=== PATIENT | female | born 1970 | race Two or more races ===

== ENCOUNTER 2019-02-08 14:09 | Inpatient (IN) | payer OTHER ==
[~2019-02-08] VITALS: Ht 152.4 cm; Wt 64.0 kg
[2019-02-08 14:25] VITALS: BP 113/68
--- NOTE | 2019-02-08 14:25 | NUR ---
ED Nurse Note: PATIENT PRESENTS TO DUE TO ABDOMINAL PAIN, CHILLS, N/V AND LOOSE STOOL X 2 DAYS; PATIENT STATES 'PAIN WAS ALL OVER THE ABDOMEN'; PATIENT HAS REDNESS WITH SCALY SKIN ON UPPER BACK, CHEST. PER PATIENT, SHE WAS SEEN BY MD DUE TO ALLERGIC REACTION 2 DAYS AGO. PATIENT HAS SCALY SKIN OVER RIGHT HAND. PATIENT WAS UNABLE TO TOLERATE ORAL FLUIDS DUE TO FEELING NAUSEOUS AND VOMITIED AFTER DRINKING FLUIDS OR EATING FOOD. PATIENT AMBULATES WITH CANE AT HOME.
[2019-02-08] MEDS ORDERED: Isovue-300 100ml vial INJ PRN (14:30)
[2019-02-08 15:01] LABS: BASOPHILS % (AUTO) 1.7 % (0.0-2.0); EOSINOPHILS % (AUTO) 0.5 % (0.0-3.0); HEMATOCRIT 50.5 % (37.0-47.0); HEMOGLOBIN 16.7 G/DL (12.0-16.0); LYMPHOCYTES % (AUTO) 12.6 % (20.0-45.0); MEAN CORPUSCULAR VOLUME 90 FL (80-99); MONOCYTES % (AUTO) 14.1 % (1.0-10.0); NEUTROPHILS % (AUTO) 71.1 % (45.0-75.0); PLATELET COUNT 287 K/UL (150-450); RED BLOOD COUNT 5.59 M/UL (4.20-5.40); RED CELL DISTRIBUTION WIDTH 10.6 % (11.6-14.8); WHITE BLOOD COUNT 3.9 K/UL (4.8-10.8)
[2019-02-08 15:05] LABS: APPEARANCE,URINE CLEAR; BILIRUBIN, URINE NEGATIVE (NEGATIVE); GLUCOSE, URINE (UA) NEGATIVE (NEGATIVE); KETONES,URINE 3+ (NEGATIVE); LEUKOCYTE ESTERASE ,URINE 1+ (NEGATIVE); NITRITE,URINE NEGATIVE (NEGATIVE); PH,URINE 7 (4.5-8.0); PROTEIN,URINE 2+ (NEGATIVE); UROBILINOGEN,URINE 8 MG/DL (0.0-1.0)
[2019-02-08 15:08] LABS: COLOR,URINE YELLOW
[2019-02-08 15:16] LABS: ANION GAP 11 mmol/L (5-15); BLOOD UREA NITROGEN 17 mg/dL (7-18); CARBON DIOXIDE 26 MMOL/L (21-32); CHLORIDE 104 MMOL/L (98-107); CREATININE 0.6 MG/DL (0.55-1.30); POTASSIUM 3.8 MMOL/L (3.5-5.1); SODIUM 141 MMOL/L (136-145)
[2019-02-08] MEDS ORDERED: NKM (15:24)
[2019-02-08 15:30] LABS: ALANINE AMINOTRANSFERASE 92 U/L (12-78); ALBUMIN 3.4 G/DL (3.4-5.0); ALBUMIN/GLOBULIN RATIO 0.6 (1.0-2.7); ALKALINE PHOSPHATASE 134 U/L (46-116); ASPARTATE AMINO TRANSFERASE 93 U/L (15-37); BILIRUBIN,TOTAL 0.8 MG/DL (0.2-1.0); CKMB 0.8 NG/ML (0.0-3.6); CREATINE KINASE 114 U/L (26-308)
--- NOTE | 2019-02-08 15:47 | Diagnostic Imaging Report ---
Indication: Shortness of breath Technique: One view of the chest Comparison: none Findings: Body habitus somewhat somewhat limits evaluation. Hazy opacity of the left lung base is probably due to overlying soft tissues. No definite acute infiltrates, effusions, or congestion. Heart size is normal Impression: No definite acute process
--- NOTE | 2019-02-08 15:51 | NUR ---
ED Nurse Note: Patient taken down for CT scan. RN read the consent form and patient verbalized understanding of it and signed the consent.
--- NOTE | 2019-02-08 15:54 | Emergency Room Report ---
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 Denies any chest pain or shortness of breath abdominal pains 5 out of 10 sharp denies any change of position denies any blood in the stool Allergies: Coded Allergies: No Known Allergies (Unverified , 02/08/19) Patient History Past Medical History: see triage record Pertinent Family History: none Last Menstrual Period: 01/03/2019 Reviewed Nursing Documentation: PMH: Agreed; PSxH: Agreed Nursing Documentation-PMH Past Medical History: No History, Except For Review of Systems All Other Systems: negative except mentioned in HPI Physical Exam Vital Signs Date Time Temp Pulse Resp B/P (MAP) Pulse Ox O2 Delivery O2 Flow Rate FiO2 02/08/19 14:15 98.1 85 18 105/80 (88) 98 Room Air Sp02 EP Interpretation: reviewed, normal General Appearance: well appearing, no apparent distress Head: normocephalic, atraumatic ENT: normal pharynx Neck: supple Respiratory: lungs clear, no retraction, no accessory muscle use Cardiovascular #1: regular rate, rhythm Gastrointestinal: other - Patient is uncomfortable diffusely however no obvious rebound soft abdomen Musculoskeletal: other - Patient debilitated with left hand flexure bilateral feet and extension Neurologic: alert, oriented x3 Skin: other - Rash involving the upper chest bilaterally patient reports that this is reaction to mustard Lymphatic: no adenopathy Medical Decision Making Diagnostic Impression: Primary Impression: Abdominal pain Additional Impression: Elevated troponin ER Course With the history exam and presentation, multiple differentials considered, including but not limited to appendicitis, gastritis, cholecystitis, diverticulitis During the patient's work-up and examination cardiac enzyme has returned mildly elevated patient CT imaging of the abdomen also shows incidental finding of bilateral lower lobe atelectasis Further question regarding cardiac and cardiopulmonary pathology was also entertained at this time, patient received further intervention in the ER And requires inpatient care Labs Test 02/08/19 14:46 02/08/19 23:00 02/09/19 05:52 02/10/19 09:57 White Blood Count 3.9 K/UL (4.8-10.8) 3.3 K/UL (4.8-10.8) 3.7 K/UL (4.8-10.8) Red Blood Count 5.59 M/UL (4.20-5.40) 4.78 M/UL (4.20-5.40) 4.86 M/UL (4.20-5.40) Hemoglobin 16.7 G/DL (12.0-16.0) 14.6 G/DL (12.0-16.0) 14.4 G/DL (12.0-16.0) Hematocrit 50.5 % (37.0-47.0) 43.2 % (37.0-47.0) 43.6 % (37.0-47.0) Mean Corpuscular Volume 90 FL (80-99) 90 FL (80-99) 90 FL (80-99) Mean Corpuscular Hemoglobin 29.9 PG (27.0-31.0) 30.6 PG (27.0-31.0) 29.7 PG (27.0-31.0) Mean Corpuscular Hemoglobin Concent 33.0 G/DL (32.0-36.0) 33.8 G/DL (32.0-36.0) 33.1 G/DL (32.0-36.0) Red Cell Distribution Width 10.6 % (11.6-14.8) 10.5 % (11.6-14.8) 10.5 % (11.6-14.8) Platelet Count 287 K/UL (150-450) 250 K/UL (150-450) 257 K/UL (150-450) Mean Platelet Volume 7.0 FL (6.5-10.1) 6.4 FL (6.5-10.1) 6.5 FL (6.5-10.1) Neutrophils (%) (Auto) 71.1 % (45.0-75.0) % (45.0-75.0) % (45.0-75.0) Lymphocytes (%) (Auto) 12.6 % (20.0-45.0) % (20.0-45.0) % (20.0-45.0) Monocytes (%) (Auto) 14.1 % (1.0-10.0) % (1.0-10.0) % (1.0-10.0) Eosinophils (%) (Auto) 0.5 % (0.0-3.0) % (0.0-3.0) % (0.0-3.0) Basophils (%) (Auto) 1.7 % (0.0-2.0) % (0.0-2.0) % (0.0-2.0) Urine Color Yellow Urine Appearance Clear Urine pH 7 (4.5-8.0) Urine Specific [place] 1.015 (1.005-1.035) Urine Protein 2+ (NEGATIVE) Urine Glucose (UA) Negative (NEGATIVE) Urine Ketones 3+ (NEGATIVE) Urine Blood 1+ (NEGATIVE) Urine Nitrite Negative (NEGATIVE) Urine Bilirubin Negative (NEGATIVE) Urine Urobilinogen 8 MG/DL (0.0-1.0) Urine Leukocyte Esterase 1+ (NEGATIVE) Urine RBC 0-2 /HPF (0 - 2) Urine WBC 0-2 /HPF (0 - 2) Urine Squamous Epithelial Cells None /LPF (NONE/OCC) Urine Bacteria None /HPF (NONE) Urine HCG, Qualitative Negative (NEGATIVE) Sodium Level 141 MMOL/L (136-145) 139 MMOL/L (136-145) 137 MMOL/L (136-145) Potassium Level 3.8 MMOL/L (3.5-5.1) 3.1 MMOL/L (3.5-5.1) 3.5 MMOL/L (3.5-5.1) Chloride Level 104 MMOL/L (98-107) 103 MMOL/L (98-107) 103 MMOL/L (98-107) Carbon Dioxide Level 26 MMOL/L (21-32) 25 MMOL/L (21-32) 25 MMOL/L (21-32) Anion Gap 11 mmol/L (5-15) 11 mmol/L (5-15) 9 mmol/L (5-15) Blood Urea Nitrogen 17 mg/dL (7-18) 17 mg/dL (7-18) 5 mg/dL (7-18) Creatinine 0.6 MG/DL (0.55-1.30) 0.6 MG/DL (0.55-1.30) 0.5 MG/DL (0.55-1.30) Estimat Glomerular Filtration Rate > 60 mL/min (>60) > 60 mL/min (>60) > 60 mL/min (>60) Glucose Level 103 MG/DL (74-106) 97 MG/DL (74-106) 100 MG/DL (74-106) Calcium Level 9.0 MG/DL (8.5-10.1) 8.4 MG/DL (8.5-10.1) 8.3 MG/DL (8.5-10.1) Total Bilirubin 0.8 MG/DL (0.2-1.0) Aspartate Amino Transf (AST/SGOT) 93 U/L (15-37) Alanine Aminotransferase (ALT/SGPT) 92 U/L (12-78) Alkaline Phosphatase 134 U/L (46-116) Total Creatine Kinase 114 U/L (26-308) Creatine Kinase MB 0.8 NG/ML (0.0-3.6) Creatine Kinase MB Relative Index 0.7 Troponin I 0.338 ng/mL (0.000-0.056) 0.520 ng/mL (0.000-0.056) 0.727 ng/mL (0.000-0.056) Pro-B-Type Natriuretic Peptide 122 pg/mL (0-125) Total Protein 8.7 G/DL (6.4-8.2) Albumin 3.4 G/DL (3.4-5.0) 3.2 G/DL (3.4-5.0) Globulin 5.3 g/dL Albumin/Globulin Ratio 0.6 (1.0-2.7) Lipase 89 U/L (73-393) Differential Total Cells Counted 100 100 Neutrophils % (Manual) 64 % (45-75) 75 % (45-75) Lymphocytes % (Manual) 15 % (20-45) 12 % (20-45) Monocytes % (Manual) 19 % (1-10) 13 % (1-10) Eosinophils % (Manual) 1 % (0-3) 0 % (0-3) Basophils % (Manual) 1 % (0-2) 0 % (0-2) Band Neutrophils 0 % (0-8) 0 % (0-8) Platelet Estimate Adequate Adequate Platelet Morphology Normal Normal Red Blood Cell Morphology Normal Normal Phosphorus Level 3.3 MG/DL (2.5-4.9) Vancomycin Level Trough 5.7 ug/mL (5.0-12.0) HIV (1&2) Antibody Rapid Negative (NEGATIVE) Test 02/11/19 04:35 White Blood Count 3.7 K/UL (4.8-10.8) Red Blood Count 4.85 M/UL (4.20-5.40) Hemoglobin 14.7 G/DL (12.0-16.0) Hematocrit 43.4 % (37.0-47.0) Mean Corpuscular Volume 89 FL (80-99) Mean Corpuscular Hemoglobin 30.3 PG (27.0-31.0) Mean Corpuscular Hemoglobin Concent 33.9 G/DL (32.0-36.0) Red Cell Distribution Width 10.1 % (11.6-14.8) Platelet Count 257 K/UL (150-450) Mean Platelet Volume 7.7 FL (6.5-10.1) Neutrophils (%) (Auto) 63.8 % (45.0-75.0) Lymphocytes (%) (Auto) 15.6 % (20.0-45.0) Monocytes (%) (Auto) 18.4 % (1.0-10.0) Eosinophils (%) (Auto) 1.4 % (0.0-3.0) Basophils (%) (Auto) 0.8 % (0.0-2.0) Sodium Level 138 MMOL/L (136-145) Potassium Level 3.2 MMOL/L (3.5-5.1) Chloride Level 103 MMOL/L (98-107) Carbon Dioxide Level 25 MMOL/L (21-32) Anion Gap 10 mmol/L (5-15) Blood Urea Nitrogen 7 mg/dL (7-18) Creatinine 0.6 MG/DL (0.55-1.30) Estimat Glomerular Filtration Rate > 60 mL/min (>60) Glucose Level 102 MG/DL (74-106) Calcium Level 8.6 MG/DL (8.5-10.1) Rhythm Strip Diag. Results EP Interpretation: yes Rate: 88 Rhythm: NSR, no PVC's, no ectopy Chest X-Ray Diagnostic Results Chest X-Ray Diagnostic Results : Chest X-Ray Ordered: Yes # of Views/Limited/Complete: 1 View Indication: Chest Pain EP Interpretation: Yes Interpretation: no consolidation, no effusion, no pneumothorax Impression: No acute disease Electronically Signed by: Cecilia Frausto DO CT/MRI/US Diagnostic Results CT/MRI/US Diagnostic Results : Impression CT abdomen pelvisImpression: The visualized lung bases to the scattered patchy pulmonary parenchymal infiltrates, most likely pneumonia Limited assessment of the GI tract, due to lack of enteric contrast administration No definite acute abdominal or pelvic process Nonspecific mild endometrial thickening and fluid. Consider pelvic sonographic correlation as clinically indicated Possible collapsed left ovarian follicle Mild superior endplate depression of the L1 vertebral body. Age indeterminate. Consider MRI for better characterization if clinically relevant Subcentimeter low-attenuation renal lesions, too small to characterize, most likely benign simple cortical cysts. No further follow-up necessary. Incidental findings of thoracolumbar dextroscoliotic deformity, accessory splenule. Last Vital Signs Date Time Temp Pulse Resp B/P (MAP) Pulse Ox O2 Delivery O2 Flow Rate FiO2 02/08/19 14:25 98.4 86 13 113/68 97 Room Air Status: improved Disposition: ADMITTED INPATIENT Condition: Serious Referrals: NON PHYSICIAN (PCP) Cecilia Frausto DO Feb 08, 2019 15:54
--- NOTE | 2019-02-08 16:13 | NUR ---
ED Nurse Note: Patient returned from CT scan. Bed in lowest position.
[2019-02-08 16:15] VITALS: BP 116/83
[2019-02-08] MEDS ORDERED: LORATADINE5 MG/5 ML PO (16:22)
--- NOTE | 2019-02-08 16:24 | NUR ---
ED Nurse Note: Family member at bedside.
--- NOTE | 2019-02-08 16:29 | Diagnostic Imaging Report ---
Clinical Indication: Abdominal pain Technique: No oral contrast utilized, per emergency room physician request IV administration nonionic contrast. Venous phase spiral acquisition obtained through the abdomen and pelvis. Multiplanar reconstructions were generated. Total dose length product 1045.46 mGycm. CTDIvol(s) 18.84 mGy. Dose reduction achieved using automated exposure control Comparison: none Findings: Like of enteric contrast limits assessment of the GI tract. The appendix is normal. There is no evidence of diverticulosis or diverticulitis. No small bowel distention. No free or loculated intraperitoneal gas or fluid is evident. The distal esophagus, stomach, duodenum are unremarkable. The liver, gallbladder, bile ducts, pancreas, spleen, adrenals are unremarkable. There is an accessory splenule. There is a subcentimeter low-attenuation lesion in the upper pole of the left kidney which is too small to characterize, most likely benign simple cyst or possibly an angiomyolipoma. Other very tiny scattered subcentimeter low-attenuation lesions are also seen bilaterally. No renal or ureteral calculi, hydronephrosis, or hydroureter. Uterus and ovaries are unremarkable, although there may be a collapsed follicle in the left ovary. The endometrial stripe is somewhat thickened, measuring 11 mm thick, and there is evidence of fluid in the endometrium No pelvic mass or adenopathy. No retroperitoneal or mesenteric mass or adenopathy. The lung bases demonstrate scattered patchy parenchymal opacities bilaterally. The bones demonstrate thoracolumbar dextroscoliotic deformity. There is a slight superior endplate depression of the L1 vertebral body. Impression: The visualized lung bases to the scattered patchy pulmonary parenchymal infiltrates, most likely pneumonia Limited assessment of the GI tract, due to lack of enteric contrast administration No definite acute abdominal or pelvic process Nonspecific mild endometrial thickening and fluid. Consider pelvic sonographic correlation as clinically indicated Possible collapsed left ovarian follicle Mild superior endplate depression of the L1 vertebral body. Age indeterminate. Consider MRI for better characterization if clinically relevant Subcentimeter low-attenuation renal lesions, too small to characterize, most likely benign simple cortical cysts. No further follow-up necessary. Incidental findings of thoracolumbar dextroscoliotic deformity, accessory splenule. The CT scanner at [facility] is accredited by the [employer] and the scans are performed using protocols designed to limit radiation exposure to as low as reasonably achievable to attain images of sufficient resolution adequate for diagnostic evaluation.
[2019-02-08] MEDS ORDERED: Morphine Sulfate 4mg/ml Inj (IV USE ONLY) IVP ONE (16:45)
[2019-02-08] MEDS ORDERED: cefTRIAXone 1 GM in NS 55 ML IVPB ONE (16:45)
--- NOTE | 2019-02-08 16:57 | NUR ---
ED Nurse Note: ERMD notified that patient c/o hard time breathing at this time. Pulse oximetry reading > 94% with RR21 with HR 80. Reports no chest pain. Able to speak full sentence. ERMD ordered to provide oxygen via N/C and placed patient in semi-otoole position.
[2019-02-08] MEDS ORDERED: Albuterol ud Inhalation HHN ONE (17:00)
[2019-02-08] MEDS ORDERED: Miralax 17gm pkt ORAL PRN (17:45)
[2019-02-08] MEDS ORDERED: Albuterol/Ipratropium 3ml neb HHN PRN (17:45)
[2019-02-08] MEDS ORDERED: Morphine Sulfate 2mg/ml Inj(IV/IM USE ONLY) IVP PRN (17:48)
--- NOTE | 2019-02-08 18:00 | NUR ---
ED Nurse Note: Patient reports she feels better with breathing at this time. Provided water.
--- NOTE | 2019-02-08 18:44 | NUR ---
ED Nurse Note: Reports given to IRVING Morataya
--- NOTE | 2019-02-08 19:15 | NUR ---
CASE MANAGEMENT: REVIEW 48Y/F BIBA FROM HOME CC: ABD PAIN . N/V/D . SOB . COUGH SI: ELEVATED TROPONIN T 98.0 HR 95 RR 25 BP 109/79 SAT 98% ROOM AIR WBC 3.9 AST 93 ALT 92 ALK PHOS 134 TROPONIN I 0.338 IS: NS IVF BOLUS X1 CEFTRIAXONE IV X1 MORPHINE IV X1 ASA PO X1 LASIX IV X1 PATIENT ADMITTED TO TELEMETRY UNIT 02/08/2019 DCP: PATIENT IS FROM HOME
--- NOTE | 2019-02-08 19:36 | NUR ---
HAND-OFF: Report received from Hood fonseca RN and report given to Kiana VILLATORO. Patient is transferred from ER to [facility]2 on a gurney without any incident. Vital signs are as follows: BP: 104/82, HR: 82 on SR, O2: 98% 2L NC, T: 97.9. Patient is not complaining of pain at this time. putty glazer initiated and patient is on SR. Belongings list checked and signed with MATHS TUTOR. Bed is in lowest position with side rails upx2 and brakes are engaged. Bed alarm is on. Encouraged patient to use call light when in need of assistance, pt verbalized understanding. Will endorse plan of care.
[2019-02-08 20:00] VITALS: BP 125/86
--- NOTE | 2019-02-08 20:08 | NUR ---
NURSE NOTES: Report received from IRVING Roamno. Pt is in stable condition resting comfortably in bed. Bed in the lowest position, bed brakes engaged, side rails up x3 and call light within reach. Will continue to monitor.
--- NOTE | 2019-02-08 20:14 | Cardiology Progress Note ---
Assessment/Plan Assessment/Plan The patient is seen and examined, full consult note is dictated. Objective Last 24 Hour Vital Signs Date Time Temp Pulse Resp B/P (MAP) Pulse Ox O2 Delivery O2 Flow Rate FiO2 02/08/19 18:44 98.0 80 19 109/79 97 Nasal Cannula 1.0 24 02/08/19 17:45 95 25 100 Nasal Cannula 24 02/08/19 17:34 24 02/08/19 17:34 96 24 94 Nasal Cannula 1.0 24 02/08/19 17:34 96 24 94 Nasal Cannula 1.0 24 02/08/19 16:15 98.1 82 20 116/83 96 Room Air 02/08/19 14:25 98.4 86 13 113/68 97 Room Air 02/08/19 14:24 84 22 Room Air 02/08/19 14:15 98.1 85 18 105/80 (88) 98 Room Air Laboratory Tests Test 02/08/19 14:46 White Blood Count 3.9 K/UL (4.8-10.8) L Red Blood Count 5.59 M/UL (4.20-5.40) H Hemoglobin 16.7 G/DL (12.0-16.0) H Hematocrit 50.5 % (37.0-47.0) H Mean Corpuscular Volume 90 FL (80-99) Mean Corpuscular Hemoglobin 29.9 PG (27.0-31.0) Mean Corpuscular Hemoglobin Concent 33.0 G/DL (32.0-36.0) Red Cell Distribution Width 10.6 % (11.6-14.8) L Platelet Count 287 K/UL (150-450) Mean Platelet Volume 7.0 FL (6.5-10.1) Neutrophils (%) (Auto) 71.1 % (45.0-75.0) Lymphocytes (%) (Auto) 12.6 % (20.0-45.0) L Monocytes (%) (Auto) 14.1 % (1.0-10.0) H Eosinophils (%) (Auto) 0.5 % (0.0-3.0) Basophils (%) (Auto) 1.7 % (0.0-2.0) Urine Color Yellow Urine Appearance Clear Urine pH 7 (4.5-8.0) Urine Specific [place] 1.015 (1.005-1.035) Urine Protein 2+ (NEGATIVE) H Urine Glucose (UA) Negative (NEGATIVE) Urine Ketones 3+ (NEGATIVE) H Urine Blood 1+ (NEGATIVE) H Urine Nitrite Negative (NEGATIVE) Urine Bilirubin Negative (NEGATIVE) Urine Urobilinogen 8 MG/DL (0.0-1.0) H Urine Leukocyte Esterase 1+ (NEGATIVE) H Urine RBC 0-2 /HPF (0 - 2) Urine WBC 0-2 /HPF (0 - 2) Urine Squamous Epithelial Cells None /LPF (NONE/OCC) Urine Bacteria None /HPF (NONE) Urine HCG, Qualitative Negative (NEGATIVE) Sodium Level 141 MMOL/L (136-145) Potassium Level 3.8 MMOL/L (3.5-5.1) Chloride Level 104 MMOL/L (98-107) Carbon Dioxide Level 26 MMOL/L (21-32) Anion Gap 11 mmol/L (5-15) Blood Urea Nitrogen 17 mg/dL (7-18) Creatinine 0.6 MG/DL (0.55-1.30) Estimat Glomerular Filtration Rate > 60 mL/min (>60) Glucose Level 103 MG/DL (74-106) Calcium Level 9.0 MG/DL (8.5-10.1) Total Bilirubin 0.8 MG/DL (0.2-1.0) Aspartate Amino Transf (AST/SGOT) 93 U/L (15-37) H Alanine Aminotransferase (ALT/SGPT) 92 U/L (12-78) H Alkaline Phosphatase 134 U/L (46-116) H Total Creatine Kinase 114 U/L (26-308) Creatine Kinase MB 0.8 NG/ML (0.0-3.6) Creatine Kinase MB Relative Index 0.7 Troponin I 0.338 ng/mL (0.000-0.056) Pro-B-Type Natriuretic Peptide 122 pg/mL (0-125) Total Protein 8.7 G/DL (6.4-8.2) H Albumin 3.4 G/DL (3.4-5.0) Globulin 5.3 g/dL Albumin/Globulin Ratio 0.6 (1.0-2.7) L Lipase 89 U/L (73-393) Girma Menezes MD Feb 08, 2019 20:14
--- NOTE | 2019-02-08 21:15 | Consultation ---
DATE OF CONSULTATION: 02/08/2019 CARDIOLOGY CONSULTATION CONSULTING PHYSICIAN: Girma Menezes M.D. REFERRING PHYSICIAN: Shahriar Solorzano D.O. REASON FOR CONSULTATION: Management of elevated troponin I level. HISTORY OF PRESENT ILLNESS: The patient is a very unfortunate 48-year-old female, who was recently discharged from an outside hospital for food poisoning, presents today to this facility with diffuse abdominal pain with associated diarrhea, severe nausea, and inability to tolerate p.o. The patient is legally blind and has left-sided paralysis. She also states that she has trouble with chest pain. At the time of arrival to this facility, blood pressure was 105/88 and pulse was 85. Laboratory finding revealed evidence of leukopenia as well as elevated troponin I level at 0.033. Both AST and ALT were elevated at 93 and 92. The patient was admitted to telemetry for further evaluation and management. Cardiology consultation was made at request of Dr. Shahriar Solorzano. PAST MEDICAL HISTORY: 1. Blindness, bilateral. 2. Left upper extremity paralysis. ALLERGIES: No known drug allergies. FAMILY HISTORY: No premature coronary artery disease in first-degree relatives. PAST SURGICAL HISTORY: None. SOCIAL HISTORY: Denies any tobacco, alcohol, or illicit drug use. REVIEW OF SYSTEMS: A 12-system review done essentially negative except what was mentioned in history of present illness. MEDICATIONS: List of medication includes loratadine 5 mg p.o. daily. PHYSICAL EXAMINATION: Vital signs: BP 105/80, pulse of 85, respirations 18, temperature 98.1 degrees Fahrenheit, and O2 saturation 98% on room air. HEENT: Atraumatic, anicteric, PERRLA, EOMI, B/L Blindness NECK: JVP <5 cm, No carotid bruit, carotid upstroke 2+ B/L CVS: Normal S1S2, No murmurs, gallops or rubs, RRR LUNGS: Clear to auscultation. ABDOMEN: Soft non-tender, non-distended, no hepatosplenomegaly, +BS EXT: No evidence od edema, clubbing or cyanosis. ASSESSMENT AND PLAN: The patient is a very unfortunate 48-year-old female, who seen in Cardiology consultation. 1. Elevated troponin I level in this patient. I would like to order a 12-lead electrocardiogram to review the rhythm and possible ST and T-wave changes. The chart does not contain 12-lead electrocardiogram and computer does not provide 12-lead electrocardiogram, either. We will obtain 2D echocardiography for assessment of LV systolic and diastolic function. 2. I ordered another troponin I level stat to see the trend of the troponin I level. The patient is currently complaining of abdominal pain, nausea, and vomiting. 3. Legally blind. 4. History of food poisoning. 5. History of left upper extremity paralysis. I would like to thank Dr. Solorzano for allowing me to participate in care of this patient. Girma Menezes M.D. DR: JUNIOR JOB#: [id number] CC: YNES
[2019-02-08] MEDS: Vancomycin 750mg/NS 275ml IVPB SCH ×2 (21:54)
[2019-02-08] MEDS: Cefepime HCl 2 GM in D5W 110 ML IV SCH (21:55)
[2019-02-08] MEDS: Heparin 5000 units/ml inj SUBQ SCH (21:58)
[2019-02-08] MEDS ORDERED: Vancomycin 1 GM in D5W 275 ML IV SCH (23:00)
[2019-02-09] VITALS: BP 117/79
[2019-02-09 04:00] VITALS: BP 105/77
[2019-02-09 07:22] LABS: HEMATOCRIT 43.2 % (37.0-47.0); HEMOGLOBIN 14.6 G/DL (12.0-16.0); MEAN CORPUSCULAR VOLUME 90 FL (80-99); PLATELET COUNT 250 K/UL (150-450); RED BLOOD COUNT 4.78 M/UL (4.20-5.40); RED CELL DISTRIBUTION WIDTH 10.5 % (11.6-14.8); WHITE BLOOD COUNT 3.3 K/UL (4.8-10.8)
--- NOTE | 2019-02-09 07:27 | NUR ---
HAND-OFF: Report given to IRVING Cruz. Plan of care endorsed.
--- NOTE | 2019-02-09 07:28 | NUR ---
NURSE NOTES: Received report from Kiana/RN, Patient is awake, Denies any pain at this time. Patient is able to make needs known. Checked IV, Patent, no bleeding or infiltration noted at this time. Bed in lowest position and locked, Call light within reach. All personal belonging within reach. Will continue plan of care.
[2019-02-09 07:50] LABS: ALBUMIN 3.2 G/DL (3.4-5.0); ANION GAP 11 mmol/L (5-15); BLOOD UREA NITROGEN 17 mg/dL (7-18); CALCIUM 8.4 MG/DL (8.5-10.1); CARBON DIOXIDE 25 MMOL/L (21-32); CHLORIDE 103 MMOL/L (98-107); CREATININE 0.6 MG/DL (0.55-1.30); PHOSPHORUS 3.3 MG/DL (2.5-4.9); POTASSIUM 3.1 MMOL/L (3.5-5.1); SODIUM 139 MMOL/L (136-145)
[2019-02-09 08:00] VITALS: BP 138/75
[2019-02-09] MEDS: Cefepime HCl 2 GM in D5W 110 ML IV SCH ×2 (08:44→20:13)
[2019-02-09] MEDS: Heparin 5000 units/ml inj SUBQ SCH ×2 (08:50→20:14)
[2019-02-09] MEDS: Vancomycin 750mg/NS 275ml IVPB SCH ×4 (10:17→21:06)
[2019-02-09 12:00] VITALS: BP 113/71
[2019-02-09] MEDS: Sodium Chloride for KCL Premix X 4hrs IV SCH ×2 (12:03→15:46)
[2019-02-09 16:00] VITALS: BP 114/94
--- NOTE | 2019-02-09 16:30 | History and Physical Report ---
DATE OF ADMISSION: 02/08/2019 DATE AND TIME SEEN: On at 12 noon. CONSULTANTS: 1. Adithya Arana M.D. 2. Simone Sommers M.D. 3. Mary Martinez M.D. 4. Girma Menezes M.D. CHIEF COMPLAINT: Abdominal pain, nausea, vomiting, elevated troponin, pneumonia. BRIEF HISTORY: This is a 48-year-old female, who lives at home, today presented with increased abdominal pain, slight nausea, and vomiting over the past 2 days with slightly short of breath, came to [place], diagnosed with the above as well as pneumonia and elevated troponin of 0.3, and admitted to telemetry for further care. Currently, O2 NC, slight short of breath in bed, no complaint. REVIEW OF SYSTEMS: No chest pain. Slight shortness of breath. Slight nausea and vomiting. PAST MEDICAL HISTORY: Fall with left hand contracture. PAST SURGICAL HISTORY: . ALLERGIES: Denies. MEDICATIONS: Include potassium, vancomycin, cefepime, morphine, Tylenol, Zofran, ipratropium, furosemide, ceftriaxone. SOCIAL HISTORY: No smoking. No alcohol. No intravenous drug abuse. FAMILY HISTORY: Noncontributory. PHYSICAL EXAMINATION: GENERAL: Calm in bed, O2 NC, slight short of breath. No complaint. VITAL SIGNS: Temperature 98 degrees, pulse 83, respirations 17, blood pressure 130/75. CARDIOVASCULAR: No murmur. LUNGS: Distant and clear. ABDOMEN: Bowel sounds positive. Nontender. Nondistended. EXTREMITIES: No cyanosis, clubbing, or edema. Left hand contracture noted. NEUROLOGIC: The patient moves all extremities, slightly weak. LABORATORY AND DIAGNOSTIC DATA: Labs at this time show white count 3.3, otherwise CBC is normal. BMP shows potassium 3.1. Troponin 0.33 and then 0.52. ASSESSMENT: Abdominal pain, pneumonia, elevated troponin, slight nausea and vomiting. PLAN: 1. Troponin q.8 h. x3. 2. EKG in the morning. 3. Pain control. 4. Cardiology followup. 5. GI followup. 6. Antibiotics per Infectious Disease. 7. PT, OT, dietary evaluation. Shahriar Solorzano D.O. DR: Kavita JOB#: [id number] CC:
--- NOTE | 2019-02-09 19:15 | NUR ---
NURSE NOTES: Pt report received from Nancy VILLATORO TELE. pt is alert and oriented times 4 and able to follow commands. 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 no acute signs symptoms of cardiac distress noted. Pt is also on 2L NC able to sat at 100%, no signs symptoms of acute resp distress noted. all saftey precautions active, bed locked and low, bed armed, call light is within easy reach. will continue plan of care.
--- NOTE | 2019-02-09 19:33 | NUR ---
HAND-OFF: Report given to Zoe, Patient is awake and alert, No acute distress noted. Family at bedside. Endorsed plan of care. Addendum: 02/09/19 at 1936 by Nancy Bhatti RN Report given to Delfin
[2019-02-09 20:00] VITALS: BP 102/71
--- NOTE | 2019-02-09 21:19 | Consultation ---
History of Present Illness General Date patient seen: Feb 09, 2019 Chief Complaint: Abdominal Pain Present Illness HPI 48 yo F with hx of legally blindness, L side paralysis, presented to ED on with diffuse abd pain, diarrhea, nausea and inability to tolerate PO. OF note patient was recently discharge from outside hospital for food poisoning. Pain is described as sharp, 5/10 intensity Denied VILLALTA, CP, SOB, melena, hematochezia Allergies: Coded Allergies: No Known Allergies (Unverified , 02/08/19) Medication History Scheduled No Known Medications* (NKM - No Known Medications*), 0 ., (Reported) Miscellaneous Medications Loratadine (Loratadine), 5 MG PO, (Reported) Patient History Healthcare decision maker N Resuscitation status Full Code Advanced Directive on File Patient History Narrative Pmhx: as above Shx: Denies any tobacco, alcohol, or illicit drug use. Fhx: non contributory Review of Systems All Other Systems: negative except mentioned in HPI Physical Exam Physical Exam Narrative GENERAL: Calm in bed, O2 NC, slight short of breath. No complaint. CARDIOVASCULAR: No murmur. LUNGS: Distant and clear. ABDOMEN: Bowel sounds positive. Nontender. Nondistended. EXTREMITIES: No cyanosis, clubbing, or edema. Left hand contracture noted. NEUROLOGIC: The patient moves all extremities, slightly weak. Last 24 Hour Vital Signs Date Time Temp Pulse Resp B/P (MAP) Pulse Ox O2 Delivery O2 Flow Rate FiO2 02/09/19 16:00 76 02/09/19 16:00 98.1 70 17 114/94 (101) 98 02/09/19 15:17 Nasal Cannula 2.0 02/09/19 12:00 71 02/09/19 12:00 97.8 82 17 113/71 (85) 99 02/09/19 09:00 Nasal Cannula 2.0 02/09/19 08:00 98.2 83 17 138/75 (96) 98 02/09/19 08:00 73 02/09/19 04:00 70 02/09/19 04:00 98.1 78 16 105/77 (86) 96 02/09/19 00:00 80 02/09/19 00:00 98.1 83 18 117/79 (92) 99 Intake and Output 02/08/19 02/09/19 19:00 07:00 Intake Total 675 ml Output Total 415 ml Balance 260 ml Intake Oral 120 ml IV Total 555 ml Output Urine Total 415 ml # Voids 1 Laboratory Tests Test 02/08/19 23:00 02/09/19 05:52 Troponin I 0.520 ng/mL (0.000-0.056) White Blood Count 3.3 K/UL (4.8-10.8) L Red Blood Count 4.78 M/UL (4.20-5.40) Hemoglobin 14.6 G/DL (12.0-16.0) Hematocrit 43.2 % (37.0-47.0) Mean Corpuscular Volume 90 FL (80-99) Mean Corpuscular Hemoglobin 30.6 PG (27.0-31.0) Mean Corpuscular Hemoglobin Concent 33.8 G/DL (32.0-36.0) Red Cell Distribution Width 10.5 % (11.6-14.8) L Platelet Count 250 K/UL (150-450) Mean Platelet Volume 6.4 FL (6.5-10.1) L Neutrophils (%) (Auto) % (45.0-75.0) Lymphocytes (%) (Auto) % (20.0-45.0) Monocytes (%) (Auto) % (1.0-10.0) Eosinophils (%) (Auto) % (0.0-3.0) Basophils (%) (Auto) % (0.0-2.0) Differential Total Cells Counted 100 Neutrophils % (Manual) 64 % (45-75) Lymphocytes % (Manual) 15 % (20-45) L Monocytes % (Manual) 19 % (1-10) H Eosinophils % (Manual) 1 % (0-3) Basophils % (Manual) 1 % (0-2) Band Neutrophils 0 % (0-8) Platelet Estimate Adequate Platelet Morphology Normal Red Blood Cell Morphology Normal Sodium Level 139 MMOL/L (136-145) Potassium Level 3.1 MMOL/L (3.5-5.1) L Chloride Level 103 MMOL/L (98-107) Carbon Dioxide Level 25 MMOL/L (21-32) Anion Gap 11 mmol/L (5-15) Blood Urea Nitrogen 17 mg/dL (7-18) Creatinine 0.6 MG/DL (0.55-1.30) Estimat Glomerular Filtration Rate > 60 mL/min (>60) Glucose Level 97 MG/DL (74-106) Calcium Level 8.4 MG/DL (8.5-10.1) L Phosphorus Level 3.3 MG/DL (2.5-4.9) Albumin 3.2 G/DL (3.4-5.0) L Height (Feet): 5 Height (Inches): 0.00 Weight (Pounds): 140 Medications Current Medications Medications (Trade) Dose Ordered Sig/Keron Route PRN Reason Start Time Stop Time Status Last Admin Dose Admin Acetaminophen (Tylenol) 650 mg Q4H PRN ORAL FEVER 02/08/19 17:48 03/10/19 17:47 Albuterol/ Ipratropium (Albuterol/ Ipratropium) 3 ml Q4H PRN HHN Shortness of Breath 02/08/19 17:45 02/13/19 17:44 Cefepime HCl 2 gm/ Dextrose 110 ml @ 220 mls/hr EVERY 12 HOURS IV 02/08/19 21:00 02/15/19 20:59 02/09/19 20:13 Dextrose (Dextrose 50%) 25 ml Q30M PRN IV Hypoglycemia 02/08/19 17:45 03/10/19 17:44 Dextrose (Dextrose 50%) 50 ml Q30M PRN IV Hypoglycemia 02/08/19 17:45 03/10/19 17:44 Heparin Sodium (Porcine) (Heparin 5000 units/ml) 5,000 units EVERY 12 HOURS SUBQ 02/08/19 21:00 03/10/19 20:59 02/09/19 20:14 Iopamidol (Isovue-300 100ml) 100 ml NOW PRN INJ Radiology Procedure 02/08/19 14:30 Morphine Sulfate (Morphine Sulfate) 2 mg Q4H PRN IVP Severe Pain (Pain Scale 7-10) 02/08/19 17:48 02/15/19 17:47 Ondansetron HCl (Zofran) 4 mg Q6H PRN IVP Nausea & Vomiting 02/08/19 17:45 03/10/19 17:44 02/09/19 02:39 Polyethylene Glycol (Miralax) 17 gm DAILYPRN PRN ORAL Constipation 02/08/19 17:45 03/10/19 17:44 Vancomycin HCl (Vanco rx to dose) 1 ea DAILY PRN MISC . 02/08/19 18:00 03/10/19 17:59 Vancomycin HCl 750 mg/Sodium Chloride 275 ml @ 183.333 mls/hr Q12HR@1000,2200 IVPB 02/08/19 22:00 02/13/19 21:59 02/09/19 10:17 Assessment/Plan Assessment/Plan: Abx: Ceftriaxone x1 02/08 IV Vancomycin 02/08 Cefepime 02/08- Assessment: Abd pain, Nausea Recent food poisoning PNA (+cough) -CT abd/p: The visualized lung bases to the scattered patchy pulmonary parenchymal infiltrates, most likely pneumonia. Limited assessment of the GI tract, due to lack of enteric contrast administration. No definite acute abdominal or pelvic process. Nonspecific mild endometrial thickening and fluid. Consider pelvic sonographic correlation as clinically indicated Possible collapsed left ovarian follicle. Mild superior endplate depression of the L1 vertebral body. Age indeterminate. Consider MRI for better characterization if clinically relevant Subcentimeter low-attenuation renal lesions, too small to characterize, most likely benign simple cortical cysts. No further follow-up necessary. Afebrile no leukocytosis -CXR: No definite acute process -u/a neg Elevated troponins legally blindness L side paralysis Plan: -Switch IV Vancomycin and Cefepime #2/5 to PO Levaquin for PNA. -f/u cx -Monitor CBC/CMP, temperatures -HIV ab am -sp cx Thank you for this consultation. Will continue to follow along with you. Discussed with Sarah Lopez M.D. Feb 09, 2019 21:19
--- NOTE | 2019-02-09 23:15 | Consultation ---
DATE OF CONSULTATION: 02/09/2019 GASTROENTEROLOGY CONSULTATION CONSULTING PHYSICIAN: Montana Cowan M.D. CHIEF COMPLAINT: I was asked to see this patient by Dr. Shahriar Solorzano for evaluation of abdominal issues. HISTORY OF PRESENT ILLNESS: The patient is a 48-year-old woman who was admitted to the hospital complaining of two days, though, of having diarrhea and yesterday having vomiting and abdominal pain. She feels better today and she is actually hungry. She has had no recent trips and no ill contacts, but apparently was recently discharged from the outside hospital. 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 She has never had endoscopy or colonoscopy. PAST MEDICAL HISTORY: History of bilateral blindness, left upper extremity paralysis, and recent eye infection. FAMILY HISTORY: Noncontributory. SOCIAL HISTORY: The patient is single. She does have a boyfriend. She does not smoke or drink alcohol. MEDICATIONS: See the chart list for details. ALLERGIES: None. REVIEW OF SYSTEMS: Otherwise negative. PHYSICAL EXAMINATION: GENERAL: Debilitated woman, seen in her room. HEENT: Normocephalic and atraumatic. Eyes were partially closed, encrusted bilaterally. Oropharynx is clear. NECK: Supple. CHEST: Clear to auscultation. CARDIOVASCULAR: Revealed a regular rate. ABDOMEN: Soft. Good bowel sounds. Nontender. EXTREMITIES: Revealed no edema. LABORATORY DATA: Laboratory data were noted. The patient has some mild level of liver test abnormalities. ASSESSMENT: This patient has some nausea, vomiting, and diarrhea with some mild elevation in liver tests and a recent bout of gastrointestinal illness. The patient should have her hepatitis serologies checked. CT scan of abdomen and pelvis evaluation done and there is no major intra-abdominal pathology to explain the patient's complaints. In addition, the liver parenchyma appears to be normal. Given that the patient's symptoms have subsided, I will proceed with clear liquid diet and advance as tolerated. Stool should be checked for pathogens once obtained. Thank you for asking me to participate in the care of this patient. Montana Cowan M.D. DR: BOYD JOB#: [id number] CC: [email or web address]
[2019-02-10] VITALS: BP 126/73
[2019-02-10 04:00] VITALS: BP 115/70
--- NOTE | 2019-02-10 07:18 | NUR ---
HAND-OFF: Report given to Nancy VILLATORO TELE.
--- NOTE | 2019-02-10 07:20 | NUR ---
NURSE NOTES: Received report from Darion/RN, Patient is awake, lying semi-otoole, no distress/SOB noted. Checked IV, Patent, no bleeding or infiltration noted at this time. Bed in lowest position and locked, Call light within reach. All personal belonging within reach. Will continue plan of care.
[2019-02-10 08:00] VITALS: BP 144/77
[2019-02-10] MEDS: Levofloxacin 500mg tab ORAL SCH (08:54)
[2019-02-10] MEDS: Heparin 5000 units/ml inj SUBQ SCH ×2 (08:56→21:03)
--- NOTE | 2019-02-10 09:33 | General Progress Note ---
Assessment/Plan Problem List: (1) Elevated troponin ICD Codes: R74.8 - Abnormal levels of other serum enzymes SNOMED: 849635405, 783246188, 136787216 (2) SOB (shortness of breath) ICD Codes: R06.02 - Shortness of breath SNOMED: 055111078 (3) Pneumonia ICD Codes: J18.9 - Pneumonia, unspecified organism SNOMED: 174252577 (4) Abdominal pain ICD Codes: R10.9 - Unspecified abdominal pain SNOMED: 24821123 Status: unchanged Assessment/Plan: o2 pulm tx gi id cardio f/u cbc bmp am Subjective Constitutional: Reports: weakness Allergies: Coded Allergies: No Known Allergies (Unverified , 02/08/19) All Systems: reviewed and negative except above Subjective calm in bed Objective Last 24 Hour Vital Signs Date Time Temp Pulse Resp B/P (MAP) Pulse Ox O2 Delivery O2 Flow Rate FiO2 02/10/19 08:00 97.9 79 17 144/77 (99) 98 02/10/19 04:00 98.3 77 17 115/70 (85) 99 02/10/19 03:50 82 02/10/19 00:00 98.1 87 17 126/73 (90) 100 02/09/19 23:42 84 02/09/19 21:00 Nasal Cannula 2.0 02/09/19 20:00 104 02/09/19 20:00 98.5 80 17 102/71 (81) 99 02/09/19 16:00 76 02/09/19 16:00 98.1 70 17 114/94 (101) 98 02/09/19 15:17 Nasal Cannula 2.0 02/09/19 12:00 71 02/09/19 12:00 97.8 82 17 113/71 (85) 99 Intake and Output 02/09/19 02/10/19 18:59 06:59 Intake Total 700 ml 385 ml Output Total 200 ml Balance 700 ml 185 ml Intake Oral 700 ml IV Total 385 ml Output Urine Total 200 ml Height (Feet): 5 Height (Inches): 0.00 Weight (Pounds): 140 General Appearance: lethargic EENT: normal ENT inspection Neck: normal alignment Cardiovascular: normal peripheral pulses, normal rate, regular rhythm Respiratory/Chest: chest wall non-tender, lungs clear, normal breath sounds Abdomen: normal bowel sounds, non tender, soft Extremities: normal inspection Edema: no edema noted Arm (L), no edema noted Arm (R), no edema noted Leg (L), no edema noted Leg (R), no edema noted Pedal (L), no edema noted Pedal (R), no edema noted Generalized Neurologic: responsive, motor weakness Skin: normal pigmentation, warm/dry Shahriar Solorzano DO Feb 10, 2019 09:33
[2019-02-10 10:13] LABS: HEMATOCRIT 43.6 % (37.0-47.0); HEMOGLOBIN 14.4 G/DL (12.0-16.0); MEAN CORPUSCULAR VOLUME 90 FL (80-99); PLATELET COUNT 257 K/UL (150-450); RED BLOOD COUNT 4.86 M/UL (4.20-5.40); RED CELL DISTRIBUTION WIDTH 10.5 % (11.6-14.8); WHITE BLOOD COUNT 3.7 K/UL (4.8-10.8)
[2019-02-10 10:25] LABS: ANION GAP 9 mmol/L (5-15); BLOOD UREA NITROGEN 5 mg/dL (7-18); CALCIUM 8.3 MG/DL (8.5-10.1); CARBON DIOXIDE 25 MMOL/L (21-32); CHLORIDE 103 MMOL/L (98-107); CREATININE 0.5 MG/DL (0.55-1.30); POTASSIUM 3.5 MMOL/L (3.5-5.1); SODIUM 137 MMOL/L (136-145)
--- NOTE | 2019-02-10 10:31 | General Progress Note ---
Assessment/Plan Status: unchanged Assessment/Plan: Assessment - resolved abd pain - resolving N/V - resolved diarrhea - possibly viral gastroenteritis Recommendations - advance diet - follow symptoms Subjective Allergies: Coded Allergies: No Known Allergies (Unverified , 02/08/19) Subjective no further vomiting tolerating clears Objective Last 24 Hour Vital Signs Date Time Temp Pulse Resp B/P (MAP) Pulse Ox O2 Delivery O2 Flow Rate FiO2 02/10/19 09:00 Nasal Cannula 2.0 02/10/19 08:00 69 02/10/19 08:00 97.9 79 17 144/77 (99) 98 02/10/19 04:00 98.3 77 17 115/70 (85) 99 02/10/19 03:50 82 02/10/19 00:00 98.1 87 17 126/73 (90) 100 02/09/19 23:42 84 02/09/19 21:00 Nasal Cannula 2.0 02/09/19 20:00 104 02/09/19 20:00 98.5 80 17 102/71 (81) 99 02/09/19 16:00 76 02/09/19 16:00 98.1 70 17 114/94 (101) 98 02/09/19 15:17 Nasal Cannula 2.0 02/09/19 12:00 71 02/09/19 12:00 97.8 82 17 113/71 (85) 99 Intake and Output 02/09/19 02/10/19 18:59 06:59 Intake Total 700 ml 385 ml Output Total 200 ml Balance 700 ml 185 ml Intake Oral 700 ml IV Total 385 ml Output Urine Total 200 ml Laboratory Tests 02/10/19 09:57: White Blood Count 3.7L, Red Blood Count 4.86, Hemoglobin 14.4, Hematocrit 43.6, Mean Corpuscular Volume 90, Mean Corpuscular Hemoglobin 29.7, Mean Corpuscular Hemoglobin Concent 33.1, Red Cell Distribution Width 10.5L, Platelet Count 257, Mean Platelet Volume 6.5, Neutrophils (%) (Auto) , Lymphocytes (%) (Auto) , Monocytes (%) (Auto) , Eosinophils (%) (Auto) , Basophils (%) (Auto) , Neutrophils % (Manual) [Pending], Lymphocytes % (Manual) [Pending], Platelet Estimate [Pending], Platelet Morphology [Pending], Sodium Level 137, Potassium Level 3.5, Chloride Level 103, Carbon Dioxide Level 25, Anion Gap 9, Blood Urea Nitrogen 5L, Creatinine 0.5L, Estimat Glomerular Filtration Rate > 60, Glucose Level 100, Calcium Level 8.3L, Troponin I [Pending], Vancomycin Level Trough [ Pending], HIV (1&2) Antibody Rapid [Pending] Height (Feet): 5 Height (Inches): 0.00 Weight (Pounds): 140 Objective NAD eyes closed Neck supple CTA RRR abd soft (+) josselyn Montana Cowan MD Feb 10, 2019 10:30
--- NOTE | 2019-02-10 11:08 | NUR ---
NURSE NOTES: Patient troponin is trending up, from 0.[address] Clif Rayo is aware. No new order at this time.
[2019-02-10 12:00] VITALS: BP 145/81
--- NOTE | 2019-02-10 14:43 | NUR ---
NURSE NOTES: Patient is paralyzed on left side and uses her right elbow to pull herself up in bed, and her elbow have some redness. picture taken and uploaded on system. Site cleaned and covered with Optifoam.
--- NOTE | 2019-02-10 15:38 | NUR ---
PT Note PT jeannette completed, treatment initiated. Patient was able to take ~ 2 steps at bedside. Patient's mobility is limited by generalized weakness and c/o nausea. Patient needs PT to increase her muscle strength and balance to improve her safety in mobility and gait to enable her to return home. Addendum: 02/10/19 at 1539 by BERNARD GU PT Amended: Links added.
[2019-02-10 16:00] VITALS: BP 127/89
--- NOTE | 2019-02-10 19:17 | NUR ---
HAND-OFF: Report given to Devaughn/RN, Patient is awake and alert, lying semi-otoole, no acut distress/SOB noted, in stable condition. Endorsed plan of care.
--- NOTE | 2019-02-10 19:18 | NUR ---
NURSE NOTES: Got report from Nancy RN. Pt in stable condition. Denies any pain. No s/s of distress or discomfort noted. Pt resting in bed comfortably. Bed in low and locked position, call light within reach, bedside table within reach. Continue to monitor.
[2019-02-10 20:00] VITALS: BP 124/84
--- NOTE | 2019-02-10 22:22 | Cardiology Progress Note ---
Assessment/Plan Assessment/Plan 1. Elevated troponin I level in this patient, possibilities sepsis, Type II NSTEMI or demand-ischemia. No wall motion abnormalities on 2D echo, LVEF estimated at 55%. Continue the current management. Scheduled nuclear stress test in am. 2. Legally blind. 3. History of food poisoning. 4. History of left upper extremity paralysis. Subjective Subjective Sinus rhythm at rate of 78. Objective Last 24 Hour Vital Signs Date Time Temp Pulse Resp B/P (MAP) Pulse Ox O2 Delivery O2 Flow Rate FiO2 02/10/19 20:00 98.2 78 16 124/84 (97) 97 02/10/19 16:00 98.3 79 17 127/89 (102) 99 02/10/19 16:00 88 02/10/19 12:00 79 02/10/19 12:00 98.1 80 17 145/81 (102) 99 02/10/19 09:00 Nasal Cannula 2.0 02/10/19 08:00 69 02/10/19 08:00 97.9 79 17 144/77 (99) 98 02/10/19 04:00 98.3 77 17 115/70 (85) 99 02/10/19 03:50 82 02/10/19 00:00 98.1 87 17 126/73 (90) 100 02/09/19 23:42 84 Intake and Output 02/09/19 02/10/19 18:59 06:59 Intake Total 700 ml 385 ml Output Total 200 ml Balance 700 ml 185 ml Intake Oral 700 ml IV Total 385 ml Output Urine Total 200 ml 2D Echo: LVEF 55%, Mild LVH, RVSP 7 mmHg, Grade I LVDD Laboratory Tests Test 02/10/19 09:57 White Blood Count 3.7 K/UL (4.8-10.8) L Red Blood Count 4.86 M/UL (4.20-5.40) Hemoglobin 14.4 G/DL (12.0-16.0) Hematocrit 43.6 % (37.0-47.0) Mean Corpuscular Volume 90 FL (80-99) Mean Corpuscular Hemoglobin 29.7 PG (27.0-31.0) Mean Corpuscular Hemoglobin Concent 33.1 G/DL (32.0-36.0) Red Cell Distribution Width 10.5 % (11.6-14.8) L Platelet Count 257 K/UL (150-450) Mean Platelet Volume 6.5 FL (6.5-10.1) Neutrophils (%) (Auto) % (45.0-75.0) Lymphocytes (%) (Auto) % (20.0-45.0) Monocytes (%) (Auto) % (1.0-10.0) Eosinophils (%) (Auto) % (0.0-3.0) Basophils (%) (Auto) % (0.0-2.0) Differential Total Cells Counted 100 Neutrophils % (Manual) 75 % (45-75) Lymphocytes % (Manual) 12 % (20-45) L Monocytes % (Manual) 13 % (1-10) H Eosinophils % (Manual) 0 % (0-3) Basophils % (Manual) 0 % (0-2) Band Neutrophils 0 % (0-8) Platelet Estimate Adequate Platelet Morphology Normal Red Blood Cell Morphology Normal Sodium Level 137 MMOL/L (136-145) Potassium Level 3.5 MMOL/L (3.5-5.1) Chloride Level 103 MMOL/L (98-107) Carbon Dioxide Level 25 MMOL/L (21-32) Anion Gap 9 mmol/L (5-15) Blood Urea Nitrogen 5 mg/dL (7-18) L Creatinine 0.5 MG/DL (0.55-1.30) L Estimat Glomerular Filtration Rate > 60 mL/min (>60) Glucose Level 100 MG/DL (74-106) Calcium Level 8.3 MG/DL (8.5-10.1) L Troponin I 0.727 ng/mL (0.000-0.056) Vancomycin Level Trough 5.7 ug/mL (5.0-12.0) HIV (1&2) Antibody Rapid Negative (NEGATIVE) Objective HEENT: Atraumatic, anicteric, PERRLA, EOMI, B/L Blindness NECK: JVP <5 cm, No carotid bruit, carotid upstroke 2+ B/L CVS: Normal S1S2, No murmurs, gallops or rubs, RRR LUNGS: Clear to auscultation. ABDOMEN: Soft non-tender, non-distended, no hepatosplenomegaly, +BS EXT: No evidence of edema, clubbing or cyanosis. Girma Menezes MD Feb 10, 2019 22:22
[2019-02-11 00:07] VITALS: BP 112/82
[2019-02-11 04:20] VITALS: BP 130/84
[2019-02-11 06:01] LABS: BASOPHILS % (AUTO) 0.8 % (0.0-2.0); EOSINOPHILS % (AUTO) 1.4 % (0.0-3.0); HEMATOCRIT 43.4 % (37.0-47.0); HEMOGLOBIN 14.7 G/DL (12.0-16.0); LYMPHOCYTES % (AUTO) 15.6 % (20.0-45.0); MEAN CORPUSCULAR VOLUME 89 FL (80-99); MONOCYTES % (AUTO) 18.4 % (1.0-10.0); NEUTROPHILS % (AUTO) 63.8 % (45.0-75.0); PLATELET COUNT 257 K/UL (150-450); RED BLOOD COUNT 4.85 M/UL (4.20-5.40); RED CELL DISTRIBUTION WIDTH 10.1 % (11.6-14.8); WHITE BLOOD COUNT 3.7 K/UL (4.8-10.8)
[2019-02-11 06:18] LABS: ANION GAP 10 mmol/L (5-15); BLOOD UREA NITROGEN 7 mg/dL (7-18); CALCIUM 8.6 MG/DL (8.5-10.1); CARBON DIOXIDE 25 MMOL/L (21-32); CHLORIDE 103 MMOL/L (98-107); CREATININE 0.6 MG/DL (0.55-1.30); POTASSIUM 3.2 MMOL/L (3.5-5.1); SODIUM 138 MMOL/L (136-145)
--- NOTE | 2019-02-11 07:10 | NUR ---
NURSE NOTES: Per pt is bilateral blindness. Witnessed verbal consent for Stress Test today with Weston from Cardiology. Pt agreed to Stress Test today. Continue to monitor.
--- NOTE | 2019-02-11 07:30 | NUR ---
HAND-OFF: Report given to Manuela VILLATORO. Endorsed plan of care.
[2019-02-11 08:00] VITALS: BP 100/61
--- NOTE | 2019-02-11 08:15 | NUR ---
NURSE NOTES: received pt in the bed, awake, alert,oriented, pt blind, vital signs stable, no co pain, no SOB, PT FOR LEXISCAN test, skin warm and dry to touch, intact, bed in low position, call light within reach, K 3.2, dr. Solorzano notified.
--- NOTE | 2019-02-11 09:37 | General Progress Note ---
Assessment/Plan Problem List: (1) Elevated troponin ICD Codes: R74.8 - Abnormal levels of other serum enzymes SNOMED: 792654560, 364708344, 543443894 (2) SOB (shortness of breath) ICD Codes: R06.02 - Shortness of breath SNOMED: 817605130 (3) Pneumonia ICD Codes: J18.9 - Pneumonia, unspecified organism SNOMED: 065051883 (4) Abdominal pain ICD Codes: R10.9 - Unspecified abdominal pain SNOMED: 45079899 Status: unchanged Assessment/Plan: o2 pulm tx gi id cardio f/u cbc bmp am Subjective Constitutional: Reports: weakness Allergies: Coded Allergies: No Known Allergies (Unverified , 02/08/19) All Systems: reviewed and negative except above Subjective pending stress test calm Objective Last 24 Hour Vital Signs Date Time Temp Pulse Resp B/P (MAP) Pulse Ox O2 Delivery O2 Flow Rate FiO2 02/11/19 08:00 98.6 70 20 100/61 (74) 98 02/11/19 04:20 98.0 83 16 130/84 (99) 95 02/11/19 04:00 69 02/11/19 00:07 97.9 79 17 112/82 (92) 96 02/11/19 00:07 79 02/10/19 21:00 Nasal Cannula 2.0 02/10/19 20:00 98.2 78 16 124/84 (97) 97 02/10/19 20:00 79 02/10/19 16:00 98.3 79 17 127/89 (102) 99 02/10/19 16:00 88 02/10/19 12:00 79 02/10/19 12:00 98.1 80 17 145/81 (102) 99 Intake and Output 02/10/19 02/11/19 19:00 07:00 Intake Total 900 ml Balance 900 ml Intake Oral 900 ml # Voids 3 4 Laboratory Tests 02/10/19 09:57: White Blood Count 3.7L, Red Blood Count 4.86, Hemoglobin 14.4, Hematocrit 43.6, Mean Corpuscular Volume 90, Mean Corpuscular Hemoglobin 29.7, Mean Corpuscular Hemoglobin Concent 33.1, Red Cell Distribution Width 10.5L, Platelet Count 257, Mean Platelet Volume 6.5, Neutrophils (%) (Auto) , Lymphocytes (%) (Auto) , Monocytes (%) (Auto) , Eosinophils (%) (Auto) , Basophils (%) (Auto) , Differential Total Cells Counted 100, Neutrophils % (Manual) 75, Lymphocytes % ( Manual) 12L, Monocytes % (Manual) 13H, Eosinophils % (Manual) 0, Basophils % ( Manual) 0, Band Neutrophils 0, Platelet Estimate Adequate, Platelet Morphology Normal, Red Blood Cell Morphology Normal, Sodium Level 137, Potassium Level 3.5 , Chloride Level 103, Carbon Dioxide Level 25, Anion Gap 9, Blood Urea Nitrogen 5L, Creatinine 0.5L, Estimat Glomerular Filtration Rate > 60, Glucose Level 100 , Calcium Level 8.3L, Troponin I 0.727H, Vancomycin Level Trough 5.7, HIV (1&2) Antibody Rapid Negative 02/11/19 04:35: White Blood Count 3.7L, Red Blood Count 4.85, Hemoglobin 14.7, Hematocrit 43.4, Mean Corpuscular Volume 89, Mean Corpuscular Hemoglobin 30.3, Mean Corpuscular Hemoglobin Concent 33.9, Red Cell Distribution Width 10.1L, Platelet Count 257, Mean Platelet Volume 7.7, Neutrophils (%) (Auto) 63.8, Lymphocytes (%) (Auto) 15.6L, Monocytes (%) (Auto) 18.4H, Eosinophils (%) (Auto) 1.4, Basophils (%) ( Auto) 0.8, Sodium Level 138, Potassium Level 3.2L, Chloride Level 103, Carbon Dioxide Level 25, Anion Gap 10, Blood Urea Nitrogen 7, Creatinine 0.6, Estimat Glomerular Filtration Rate > 60, Glucose Level 102, Calcium Level 8.6 Height (Feet): 5 Height (Inches): 0.00 Weight (Pounds): 140 General Appearance: lethargic EENT: normal ENT inspection Neck: normal alignment Cardiovascular: normal peripheral pulses, normal rate, regular rhythm Respiratory/Chest: chest wall non-tender, lungs clear, normal breath sounds Abdomen: normal bowel sounds, non tender, soft Extremities: normal inspection Edema: no edema noted Arm (L), no edema noted Arm (R), no edema noted Leg (L), no edema noted Leg (R), no edema noted Pedal (L), no edema noted Pedal (R), no edema noted Generalized Neurologic: motor weakness Skin: normal pigmentation, warm/dry Shahriar Solorzano DO Feb 11, 2019 09:37
[2019-02-11] MEDS: Levofloxacin 500mg tab ORAL SCH (09:59)
[2019-02-11] MEDS: Heparin 5000 units/ml inj SUBQ SCH ×2 (10:00→20:51)
--- NOTE | 2019-02-11 10:20 | GI Progress Note ---
Assessment/Plan Problems: (1) Gastroenteritis ICD Codes: K52.9 - Noninfective gastroenteritis and colitis, unspecified SNOMED: 74587797 (2) Elevated troponin ICD Codes: R74.8 - Abnormal levels of other serum enzymes SNOMED: 660119476, 141196730, 016922842 (3) Abdominal pain ICD Codes: R10.9 - Unspecified abdominal pain SNOMED: 19971938 (4) Pneumonia ICD Codes: J18.9 - Pneumonia, unspecified organism SNOMED: 278422987 (5) SOB (shortness of breath) ICD Codes: R06.02 - Shortness of breath SNOMED: 513321149 Status: unchanged Status Narrative Discussed with Dr. Arana Assessment/Plan Assessment - resolved abd pain - resolving N/V - resolved diarrhea - possibly viral gastroenteritis Recommendations - advance diet - follow symptoms -IV and p.o. hydration plus electrolyte correction Subjective Subjective No recurrent vomiting Abdominal pain resolved Objective Last 24 Hour Vital Signs Date Time Temp Pulse Resp B/P (MAP) Pulse Ox O2 Delivery O2 Flow Rate FiO2 02/11/19 08:00 98.6 70 20 100/61 (74) 98 02/11/19 04:20 98.0 83 16 130/84 (99) 95 02/11/19 04:00 69 02/11/19 00:07 97.9 79 17 112/82 (92) 96 02/11/19 00:07 79 02/10/19 21:00 Nasal Cannula 2.0 02/10/19 20:00 98.2 78 16 124/84 (97) 97 02/10/19 20:00 79 02/10/19 16:00 98.3 79 17 127/89 (102) 99 02/10/19 16:00 88 02/10/19 12:00 79 02/10/19 12:00 98.1 80 17 145/81 (102) 99 Intake and Output 02/10/19 02/11/19 19:00 07:00 Intake Total 900 ml Balance 900 ml Intake Oral 900 ml # Voids 3 4 Laboratory Tests Test 02/11/19 04:35 White Blood Count 3.7 K/UL (4.8-10.8) L Red Blood Count 4.85 M/UL (4.20-5.40) Hemoglobin 14.7 G/DL (12.0-16.0) Hematocrit 43.4 % (37.0-47.0) Mean Corpuscular Volume 89 FL (80-99) Mean Corpuscular Hemoglobin 30.3 PG (27.0-31.0) Mean Corpuscular Hemoglobin Concent 33.9 G/DL (32.0-36.0) Red Cell Distribution Width 10.1 % (11.6-14.8) L Platelet Count 257 K/UL (150-450) Mean Platelet Volume 7.7 FL (6.5-10.1) Neutrophils (%) (Auto) 63.8 % (45.0-75.0) Lymphocytes (%) (Auto) 15.6 % (20.0-45.0) L Monocytes (%) (Auto) 18.4 % (1.0-10.0) H Eosinophils (%) (Auto) 1.4 % (0.0-3.0) Basophils (%) (Auto) 0.8 % (0.0-2.0) Sodium Level 138 MMOL/L (136-145) Potassium Level 3.2 MMOL/L (3.5-5.1) L Chloride Level 103 MMOL/L (98-107) Carbon Dioxide Level 25 MMOL/L (21-32) Anion Gap 10 mmol/L (5-15) Blood Urea Nitrogen 7 mg/dL (7-18) Creatinine 0.6 MG/DL (0.55-1.30) Estimat Glomerular Filtration Rate > 60 mL/min (>60) Glucose Level 102 MG/DL (74-106) Calcium Level 8.6 MG/DL (8.5-10.1) Height (Feet): 5 Height (Inches): 0.00 Weight (Pounds): 140 General Appearance: WD/WN, no apparent distress, alert Cardiovascular: normal rate Respiratory/Chest: normal breath sounds, no respiratory distress Abdominal Exam: normal bowel sounds, non tender, soft Extremities: normal range of motion, non-tender Objective N.p.o. for stress test Ovidio Berumen NP Feb 11, 2019 10:20
--- NOTE | 2019-02-11 10:38 | Infectious Diseases Prog Note ---
Assessment/Plan Assessment/Plan Assessment: Abd pain, Nausea Recent food poisoning vs viral gastroenteritis PNA (+cough) -CT abd/p: The visualized lung bases to the scattered patchy pulmonary parenchymal infiltrates, most likely pneumonia. Limited assessment of the GI tract, due to lack of enteric contrast administration. No definite acute abdominal or pelvic process. Nonspecific mild endometrial thickening and fluid. Consider pelvic sonographic correlation as clinically indicated Possible collapsed left ovarian follicle. Mild superior endplate depression of the L1 vertebral body. Age indeterminate. Consider MRI for better characterization if clinically relevant Subcentimeter low-attenuation renal lesions, too small to characterize, most likely benign simple cortical cysts. No further follow-up necessary. Afebrile no leukocytosis -CXR: No definite acute process -u/a neg Elevated troponins legally blindness L side paralysis HIV ab screen neg Plan: -Continue PO Levaquin #3 (abx d #4/5) for PNA. -02/09 SP IV Vancomycin #2, Cefepime #2\ -02/08 SP Ceftriaxone x1 -f/u cx -Monitor CBC/CMP, temperatures -f/u sp cx Thank you for this consultation. Will continue to follow along with you. Discussed with RN. Subjective Allergies: Coded Allergies: No Known Allergies (Unverified , 02/08/19) Subjective afebrile no leukocytosis at 2l NC Objective Vital Signs Last 24 Hour Vital Signs Date Time Temp Pulse Resp B/P (MAP) Pulse Ox O2 Delivery O2 Flow Rate FiO2 02/11/19 08:00 98.6 70 20 100/61 (74) 98 02/11/19 04:20 98.0 83 16 130/84 (99) 95 02/11/19 04:00 69 02/11/19 00:07 97.9 79 17 112/82 (92) 96 02/11/19 00:07 79 02/10/19 21:00 Nasal Cannula 2.0 02/10/19 20:00 98.2 78 16 124/84 (97) 97 02/10/19 20:00 79 02/10/19 16:00 98.3 79 17 127/89 (102) 99 02/10/19 16:00 88 02/10/19 12:00 79 02/10/19 12:00 98.1 80 17 145/81 (102) 99 Height (Feet): 5 Height (Inches): 0.00 Weight (Pounds): 140 Objective GENERAL: Calm in bed, O2 NC, slight short of breath. No complaint. CARDIOVASCULAR: No murmur. LUNGS: Distant and clear. ABDOMEN: Bowel sounds positive. Nontender. Nondistended. EXTREMITIES: No cyanosis, clubbing, or edema. Left hand contracture noted. NEUROLOGIC: The patient moves all extremities, slightly weak. Laboratory Tests Test 02/11/19 04:35 White Blood Count 3.7 K/UL (4.8-10.8) L Red Blood Count 4.85 M/UL (4.20-5.40) Hemoglobin 14.7 G/DL (12.0-16.0) Hematocrit 43.4 % (37.0-47.0) Mean Corpuscular Volume 89 FL (80-99) Mean Corpuscular Hemoglobin 30.3 PG (27.0-31.0) Mean Corpuscular Hemoglobin Concent 33.9 G/DL (32.0-36.0) Red Cell Distribution Width 10.1 % (11.6-14.8) L Platelet Count 257 K/UL (150-450) Mean Platelet Volume 7.7 FL (6.5-10.1) Neutrophils (%) (Auto) 63.8 % (45.0-75.0) Lymphocytes (%) (Auto) 15.6 % (20.0-45.0) L Monocytes (%) (Auto) 18.4 % (1.0-10.0) H Eosinophils (%) (Auto) 1.4 % (0.0-3.0) Basophils (%) (Auto) 0.8 % (0.0-2.0) Sodium Level 138 MMOL/L (136-145) Potassium Level 3.2 MMOL/L (3.5-5.1) L Chloride Level 103 MMOL/L (98-107) Carbon Dioxide Level 25 MMOL/L (21-32) Anion Gap 10 mmol/L (5-15) Blood Urea Nitrogen 7 mg/dL (7-18) Creatinine 0.6 MG/DL (0.55-1.30) Estimat Glomerular Filtration Rate > 60 mL/min (>60) Glucose Level 102 MG/DL (74-106) Calcium Level 8.6 MG/DL (8.5-10.1) Current Medications Medications (Trade) Dose Ordered Sig/Keron Route PRN Reason Start Time Stop Time Status Last Admin Dose Admin Acetaminophen (Tylenol) 650 mg Q4H PRN ORAL FEVER 02/08/19 17:48 03/10/19 17:47 Albuterol/ Ipratropium (Albuterol/ Ipratropium) 3 ml Q4H PRN HHN Shortness of Breath 02/08/19 17:45 02/13/19 17:44 Dextrose (Dextrose 50%) 25 ml Q30M PRN IV Hypoglycemia 02/08/19 17:45 03/10/19 17:44 Dextrose (Dextrose 50%) 50 ml Q30M PRN IV Hypoglycemia 02/08/19 17:45 03/10/19 17:44 Heparin Sodium (Porcine) (Heparin 5000 units/ml) 5,000 units EVERY 12 HOURS SUBQ 02/08/19 21:00 03/10/19 20:59 02/11/19 10:00 Iopamidol (Isovue-300 100ml) 100 ml NOW PRN INJ Radiology Procedure 02/08/19 14:30 Levofloxacin (Levaquin) 500 mg DAILY ORAL 02/10/19 09:00 02/17/19 08:59 02/11/19 09:59 Morphine Sulfate (Morphine Sulfate) 2 mg Q4H PRN IVP Severe Pain (Pain Scale 7-10) 02/08/19 17:48 02/15/19 17:47 Ondansetron HCl (Zofran) 4 mg Q6H PRN IVP Nausea & Vomiting 02/08/19 17:45 03/10/19 17:44 02/11/19 06:37 Polyethylene Glycol (Miralax) 17 gm DAILYPRN PRN ORAL Constipation 02/08/19 17:45 03/10/19 17:44 Potassium Chloride (K-Dur) 30 meq ONCE ORAL 02/11/19 09:31 02/11/19 10:45 02/11/19 09:59 Promethazine HCl/ Codeine (Phenergan with Codeine) 5 ml Q6H PRN ORAL For Cough 02/11/19 07:15 03/13/19 07:14 Regadenoson (Lexiscan) 0.4 mg ONCE IV 02/11/19 11:00 03/14/19 15:00 Sarah Kilpatrick M.D. Feb 11, 2019 10:38
[2019-02-11] MEDS: Lexiscan 0.4mg/5ml syringe IV SCH ×2 (10:55→11:00)
--- NOTE | 2019-02-11 11:08 | NUR ---
CASE MANAGEMENT:REVIEW 02/10/19 SI: NSTEMI 98.1 80 17 145/81 99% ON 2L/NC TROPONIN(+) 0.727 IS: LEVAQUIN PO QD HEPARIN SQ Q12 : TELEMETRY STATUS PLAN: STRESS TEST ORDERED FOR TOMORROW 02/11/19 SI: NSTEMI 98.6 70 20 100/61 98% ON 2L/NC K-3.2 IS: IV LEXISCAN X1 LEVAQUIN PO QD HEPARIN SQ Q12 IV ZOFRAN Q6HRS PRN : TELEMETRY STATUS DCP: FROM HOME PLAN: LEXISCAN STRESS TEST IN PROGRESS
[2019-02-11 12:00] VITALS: BP 126/86
--- NOTE | 2019-02-11 12:50 | Pulmonology Progress Note ---
Assessment/Plan Problems: (1) Non-ST elevation (NSTEMI) myocardial infarction (2) Blindness of both eyes (3) Gastroenteritis (4) Elevated troponin Assessment/Plan stress study in progress symptomatic treatment dc home if stress test negative. Subjective ROS Limited/Unobtainable: No Constitutional: Reports: no symptoms HEENT: Repors: no symptoms Respiratory: Reports: no symptoms Allergies: Coded Allergies: No Known Allergies (Unverified , 02/08/19) Objective Last 24 Hour Vital Signs Date Time Temp Pulse Resp B/P (MAP) Pulse Ox O2 Delivery O2 Flow Rate FiO2 02/11/19 12:00 97.9 64 20 126/86 (99) 94 02/11/19 09:00 Nasal Cannula 2.0 02/11/19 08:00 76 02/11/19 08:00 98.6 70 20 100/61 (74) 98 02/11/19 04:20 98.0 83 16 130/84 (99) 95 02/11/19 04:00 69 02/11/19 00:07 97.9 79 17 112/82 (92) 96 02/11/19 00:07 79 02/10/19 21:00 Nasal Cannula 2.0 02/10/19 20:00 98.2 78 16 124/84 (97) 97 02/10/19 20:00 79 02/10/19 16:00 98.3 79 17 127/89 (102) 99 02/10/19 16:00 88 Intake and Output 02/10/19 02/11/19 19:00 07:00 Intake Total 900 ml Balance 900 ml Intake Oral 900 ml # Voids 3 4 General Appearance: WD/WN HEENT: normocephalic, atraumatic Respiratory/Chest: chest wall non-tender, lungs clear Breasts: no masses Abdomen: normal bowel sounds, no organomegaly Genitourinary: normal external genitalia Extremities: no clubbing 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 Lymphatic: no neck adenopathy Laboratory Tests 02/11/19 04:35: White Blood Count 3.7L, Red Blood Count 4.85, Hemoglobin 14.7, Hematocrit 43.4, Mean Corpuscular Volume 89, Mean Corpuscular Hemoglobin 30.3, Mean Corpuscular Hemoglobin Concent 33.9, Red Cell Distribution Width 10.1L, Platelet Count 257, Mean Platelet Volume 7.7, Neutrophils (%) (Auto) 63.8, Lymphocytes (%) (Auto) 15.6L, Monocytes (%) (Auto) 18.4H, Eosinophils (%) (Auto) 1.4, Basophils (%) ( Auto) 0.8, Sodium Level 138, Potassium Level 3.2L, Chloride Level 103, Carbon Dioxide Level 25, Anion Gap 10, Blood Urea Nitrogen 7, Creatinine 0.6, Estimat Glomerular Filtration Rate > 60, Glucose Level 102, Calcium Level 8.6 Current Medications Medications (Trade) Dose Ordered Sig/Keron Route PRN Reason Start Time Stop Time Status Last Admin Dose Admin Acetaminophen (Tylenol) 650 mg Q4H PRN ORAL FEVER 02/08/19 17:48 03/10/19 17:47 Albuterol/ Ipratropium (Albuterol/ Ipratropium) 3 ml Q4H PRN HHN Shortness of Breath 02/08/19 17:45 02/13/19 17:44 Aspirin (ASA) 81 mg DAILY ORAL 02/11/19 12:30 03/13/19 12:29 Dextrose (Dextrose 50%) 25 ml Q30M PRN IV Hypoglycemia 02/08/19 17:45 03/10/19 17:44 Dextrose (Dextrose 50%) 50 ml Q30M PRN IV Hypoglycemia 02/08/19 17:45 03/10/19 17:44 Docusate Sodium (Colace) 100 mg TWICE A DAY ORAL 02/11/19 18:00 03/13/19 17:59 Heparin Sodium (Porcine) (Heparin 5000 units/ml) 5,000 units EVERY 12 HOURS SUBQ 02/08/19 21:00 03/10/19 20:59 02/11/19 10:00 Iopamidol (Isovue-300 100ml) 100 ml NOW PRN INJ Radiology Procedure 02/08/19 14:30 Levofloxacin (Levaquin) 500 mg DAILY ORAL 02/10/19 09:00 02/17/19 08:59 02/11/19 09:59 Morphine Sulfate (Morphine Sulfate) 2 mg Q4H PRN IVP Severe Pain (Pain Scale 7-10) 02/08/19 17:48 02/15/19 17:47 Ondansetron HCl (Zofran) 4 mg Q6H PRN IVP Nausea & Vomiting 02/08/19 17:45 03/10/19 17:44 02/11/19 06:37 Polyethylene Glycol (Miralax) 17 gm DAILYPRN PRN ORAL Constipation 02/08/19 17:45 03/10/19 17:44 Promethazine HCl/ Codeine (Phenergan with Codeine) 5 ml Q6H PRN ORAL For Cough 02/11/19 07:15 03/13/19 07:14 Regadenoson (Lexiscan) 0.4 mg ONCE IV 02/11/19 11:00 03/14/19 15:00 Mary Martinez MD Feb 11, 2019 12:50
[2019-02-11] MEDS: Aspirin Baby 81mg ORAL SCH (14:48)
--- NOTE | 2019-02-11 15:43 | Diagnostic Imaging Report ---
Indications: Chest pain Technique: Single day single isotope protocol utilized. Initially, resting images obtained using IV administration 10.5 millicuries 99M technetium Myoview. Subsequently, patient underwent lexiscan stress testing. See cardiology report for details. During duplex infusion, IV administration 32.2 mCi 99 M technetium Myoview. SPECT and planar images obtained. SPECT images gated to 8 phases of the cardiac cycle were also obtained, and reformatted into cine images for evaluation of ejection fraction. Comparison: none Findings: Presence or absence of symptoms during infusion is not described on the cardiology report. Per cardiology report, resting EKG demonstrates normal sinus rhythm with diffuse baseline some asymmetric T wave inversion suggestive of ischemia. No ST changes noted during infusion. Imaging demonstrates normal poststress perfusion. No fixed nor reversible perfusion defects Normal cardiac chamber size. Calculated post stress ejection fraction 45%. Wall motion analysis suggests decreased or absent wall motion in the inferior wall Impression: Nonischemic clinical response to pharmacologic stress, per cardiology report Nonischemic electrocardiographic response to pharmacologic stress, per cardiology report No imaging findings to suggest ischemia, at level of stress achieved. Calculated post stress ejection fraction 45%. Note evidence of decreased inferior and septal wall motion. Significance/etiology of this in the absence of a perfusion abnormality is uncertain. Correlate with findings on recent echocardiogram
[2019-02-11 16:00] VITALS: BP 106/78
[2019-02-11] MEDS: Docusate 100mg cap ORAL SCH (17:37)
--- NOTE | 2019-02-11 19:09 | NUR ---
HAND-OFF: Report given to MIKHAIL RN, NO DISTRESS AT THIS TIME..
--- NOTE | 2019-02-11 19:34 | Cardiology Report ---
APPROVED REPORT EXAM: Two-dimensional and M-mode echocardiogram with Doppler and color Doppler. INDICATION Cardiomyopathy M-Mode DIMENSIONS IVSd1.5 (0.7-1.1cm)Left Atrium (MM)2.7 (1.6-4.0cm) LVDd3.7 (3.5-5.6cm)Aortic Root3.4 (2.0-3.7cm) PWd1.3 (0.7-1.1cm)Aortic Cusp Exc.1.8 (1.5-2.0cm) LVDs2.5 (2.5-4.0cm) PWs1.8 cm Technically difficult study due to poor acoustic windows. Study quality precludes accurate assessment of regional wall motion. Normal left ventricular chamber size, systolic function and wall motion. Left ventricular ejection fraction estimated to be 50-55 %. Mild left ventricular hypertrophy. No evidence of pericardial effusion. All other cardiac chamber sizes appear to be within normal limits. Normal appearing aortic, mitral, and tricuspid valves. Mild mitral annulus and aortic root calcification. Pulmonic valve not well visualized. IVC is normal in size with physiological collapse. A color flow and spectral Doppler study was performed and revealed: No aortic regurgitation. No mitral regurgitation. Mitral diastolic velocities suggest mild left ventricular diastolic dysfunction (Grade I). No tricuspid regurgitation. Tricuspid systolic velocities suggests peak right ventricular systolic pressure of 7 mmHg. No pulmonic regurgitation present.
[2019-02-11 20:00] VITALS: BP 114/80
--- NOTE | 2019-02-11 20:21 | NUR ---
NURSE NOTES: Received pt and report from IRVING Roy. Observed pt resting in bed with both eyes closed. Pt is blind bilaterally. 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 Bed is in the lowest position and locked. Call light within reach. No signs and symptoms of acute distress noted at this time. Will continue plan of care.
--- NOTE | 2019-02-11 20:40 | Cardiology Report ---
APPROVED REPORT EKG Measurement Heart [id number] Normal sinus rhythm Low voltage QRS Nonspecific T wave abnormality Abnormal ECG
[2019-02-11] MEDS: Promethazine/Codeine 5ml UD ORAL PRN (20:54)
--- NOTE | 2019-02-11 23:39 | Cardiology Progress Note ---
Assessment/Plan Assessment/Plan 1. Elevated troponin I level in this patient, possibilities sepsis, Type II NSTEMI or demand-ischemia. No wall motion abnormalities on 2D echo, LVEF estimated at 55%. Continue the current management. Nuclear stress test is non- ischemic. 2. Legally blind. 3. History of food poisoning. 4. History of left upper extremity paralysis. Subjective Subjective Sinus rhythm at rate of 83. s/p stress test today. Objective Last 24 Hour Vital Signs Date Time Temp Pulse Resp B/P (MAP) Pulse Ox O2 Delivery O2 Flow Rate FiO2 02/11/19 21:00 Room Air 02/11/19 20:00 98.2 83 16 114/80 (91) 98 02/11/19 20:00 74 02/11/19 16:00 98.6 74 20 106/78 (87) 95 02/11/19 16:00 78 02/11/19 12:00 76 02/11/19 12:00 97.9 64 20 126/86 (99) 94 02/11/19 09:00 Nasal Cannula 2.0 02/11/19 08:00 76 02/11/19 08:00 98.6 70 20 100/61 (74) 98 02/11/19 04:20 98.0 83 16 130/84 (99) 95 02/11/19 04:00 69 02/11/19 00:07 97.9 79 17 112/82 (92) 96 02/11/19 00:07 79 Intake and Output 02/10/19 02/11/19 18:59 06:59 Intake Total 900 ml Balance 900 ml Intake Oral 900 ml # Voids 3 4 2D Echo: LVEF 55%, Mild LVH, RVSP 7 mmHg, Grade I LVDD Laboratory Tests Test 02/11/19 04:35 White Blood Count 3.7 K/UL (4.8-10.8) L Red Blood Count 4.85 M/UL (4.20-5.40) Hemoglobin 14.7 G/DL (12.0-16.0) Hematocrit 43.4 % (37.0-47.0) Mean Corpuscular Volume 89 FL (80-99) Mean Corpuscular Hemoglobin 30.3 PG (27.0-31.0) Mean Corpuscular Hemoglobin Concent 33.9 G/DL (32.0-36.0) Red Cell Distribution Width 10.1 % (11.6-14.8) L Platelet Count 257 K/UL (150-450) Mean Platelet Volume 7.7 FL (6.5-10.1) Neutrophils (%) (Auto) 63.8 % (45.0-75.0) Lymphocytes (%) (Auto) 15.6 % (20.0-45.0) L Monocytes (%) (Auto) 18.4 % (1.0-10.0) H Eosinophils (%) (Auto) 1.4 % (0.0-3.0) Basophils (%) (Auto) 0.8 % (0.0-2.0) Sodium Level 138 MMOL/L (136-145) Potassium Level 3.2 MMOL/L (3.5-5.1) L Chloride Level 103 MMOL/L (98-107) Carbon Dioxide Level 25 MMOL/L (21-32) Anion Gap 10 mmol/L (5-15) Blood Urea Nitrogen 7 mg/dL (7-18) Creatinine 0.6 MG/DL (0.55-1.30) Estimat Glomerular Filtration Rate > 60 mL/min (>60) Glucose Level 102 MG/DL (74-106) Calcium Level 8.6 MG/DL (8.5-10.1) Objective HEENT: Atraumatic, anicteric, PERRLA, EOMI, B/L Blindness NECK: JVP <5 cm, No carotid bruit, carotid upstroke 2+ B/L CVS: Normal S1S2, No murmurs, gallops or rubs, RRR LUNGS: Clear to auscultation. ABDOMEN: Soft non-tender, non-distended, no hepatosplenomegaly, +BS EXT: No evidence of edema, clubbing or cyanosis. Girma Menezes MD Feb 11, 2019 23:39
[2019-02-12] VITALS: BP 128/83
[2019-02-12 04:00] VITALS: BP 118/95
[2019-02-12 06:44] LABS: ANION GAP 8 mmol/L (5-15); BLOOD UREA NITROGEN 11 mg/dL (7-18); CALCIUM 8.5 MG/DL (8.5-10.1); CARBON DIOXIDE 24 MMOL/L (21-32); CHLORIDE 103 MMOL/L (98-107); CREATININE 0.6 MG/DL (0.55-1.30); POTASSIUM 3.6 MMOL/L (3.5-5.1); SODIUM 135 MMOL/L (136-145)
[2019-02-12 06:46] LABS: HEMATOCRIT 42.8 % (37.0-47.0); HEMOGLOBIN 14.5 G/DL (12.0-16.0); MEAN CORPUSCULAR VOLUME 90 FL (80-99); PLATELET COUNT 239 K/UL (150-450); RED BLOOD COUNT 4.77 M/UL (4.20-5.40); RED CELL DISTRIBUTION WIDTH 10.4 % (11.6-14.8); WHITE BLOOD COUNT 3.7 K/UL (4.8-10.8)
--- NOTE | 2019-02-12 07:20 | NUR ---
NURSE NOTES: Report received from IRVING Lainez. Patient asleep comfortably. No breathing distress noted. In RA. Bed on lowest position, side rails upx2, brakes engaged. Call light placed next to R hand for easy reach.
--- NOTE | 2019-02-12 07:32 | NUR ---
NURSE NOTES: Report given to IRVING Cruz.
[2019-02-12 08:00] VITALS: BP 110/81
--- NOTE | 2019-02-12 08:10 | GI Progress Note ---
Assessment/Plan Problems: (1) Gastroenteritis ICD Codes: K52.9 - Noninfective gastroenteritis and colitis, unspecified SNOMED: 47496423 (2) Elevated troponin ICD Codes: R74.8 - Abnormal levels of other serum enzymes SNOMED: 952290033, 585385798, 320153523 (3) Abdominal pain ICD Codes: R10.9 - Unspecified abdominal pain SNOMED: 98804885 (4) Pneumonia ICD Codes: J18.9 - Pneumonia, unspecified organism SNOMED: 267797856 (5) SOB (shortness of breath) ICD Codes: R06.02 - Shortness of breath SNOMED: 414208956 Status: unchanged Status Narrative Discussed with Dr. Arana. Assessment/Plan Assessment - resolved abd pain - resolving N/V - resolved diarrhea - possibly viral gastroenteritis Recommendations - advance diet - symptomatic treatment - IV and p.o. hydration plus electrolyte correction - follow up cardiology recs The patient was seen and examined at bedside and all new and available data was reviewed in the patients chart. I agree with the above findings, impression and plan. (Patient seen earlier today. Signature stamp does not reflect patient encounter time.). - Adithya Arana MD Subjective Subjective No recurrent vomiting Abdominal pain resolved Objective Last 24 Hour Vital Signs Date Time Temp Pulse Resp B/P (MAP) Pulse Ox O2 Delivery O2 Flow Rate FiO2 02/12/19 04:00 98.4 84 16 118/95 (103) 97 02/12/19 04:00 79 02/12/19 00:00 98.9 76 17 128/83 (98) 97 02/12/19 00:00 80 02/11/19 21:00 Room Air 02/11/19 20:00 98.2 83 16 114/80 (91) 98 02/11/19 20:00 74 02/11/19 16:00 98.6 74 20 106/78 (87) 95 02/11/19 16:00 78 02/11/19 12:00 76 02/11/19 12:00 97.9 64 20 126/86 (99) 94 02/11/19 09:00 Nasal Cannula 2.0 Intake and Output 02/11/19 02/12/19 19:00 07:00 Intake Total 380 ml 600 ml Balance 380 ml 600 ml Intake Oral 380 ml 600 ml # Voids 5 # Bowel Movements 1 1 Laboratory Tests Test 02/12/19 05:30 White Blood Count 3.7 K/UL (4.8-10.8) L Red Blood Count 4.77 M/UL (4.20-5.40) Hemoglobin 14.5 G/DL (12.0-16.0) Hematocrit 42.8 % (37.0-47.0) Mean Corpuscular Volume 90 FL (80-99) Mean Corpuscular Hemoglobin 30.5 PG (27.0-31.0) Mean Corpuscular Hemoglobin Concent 33.9 G/DL (32.0-36.0) Red Cell Distribution Width 10.4 % (11.6-14.8) L Platelet Count 239 K/UL (150-450) Mean Platelet Volume 7.5 FL (6.5-10.1) Neutrophils (%) (Auto) % (45.0-75.0) Lymphocytes (%) (Auto) % (20.0-45.0) Monocytes (%) (Auto) % (1.0-10.0) Eosinophils (%) (Auto) % (0.0-3.0) Basophils (%) (Auto) % (0.0-2.0) Differential Total Cells Counted 100 Neutrophils % (Manual) 63 % (45-75) Lymphocytes % (Manual) 11 % (20-45) L Monocytes % (Manual) 22 % (1-10) H Eosinophils % (Manual) 2 % (0-3) Basophils % (Manual) 2 % (0-2) Band Neutrophils 0 % (0-8) Platelet Estimate Adequate Platelet Morphology Normal Sodium Level 135 MMOL/L (136-145) L Potassium Level 3.6 MMOL/L (3.5-5.1) Chloride Level 103 MMOL/L (98-107) Carbon Dioxide Level 24 MMOL/L (21-32) Anion Gap 8 mmol/L (5-15) Blood Urea Nitrogen 11 mg/dL (7-18) Creatinine 0.6 MG/DL (0.55-1.30) Estimat Glomerular Filtration Rate > 60 mL/min (>60) Glucose Level 103 MG/DL (74-106) Calcium Level 8.5 MG/DL (8.5-10.1) Height (Feet): 5 Height (Inches): 0.00 Weight (Pounds): 140 General Appearance: WD/WN, no apparent distress, alert Cardiovascular: normal rate Respiratory/Chest: normal breath sounds, no respiratory distress Abdominal Exam: normal bowel sounds, non tender, soft Extremities: normal range of motion, non-tender Objective N.p.o. for stress test Ovidio Berumen NP Feb 12, 2019 08:10
[2019-02-12] MEDS: Aspirin Baby 81mg ORAL SCH (08:51)
[2019-02-12] MEDS: Docusate 100mg cap ORAL SCH ×2 (08:51→18:28)
[2019-02-12] MEDS: Levofloxacin 500mg tab ORAL SCH (08:51)
[2019-02-12] MEDS: Heparin 5000 units/ml inj SUBQ SCH ×2 (08:54→22:05)
--- NOTE | 2019-02-12 09:30 | NUR ---
NURSE NOTES: Pt. unable to open eyes. Said she has an eye infection and was given an eye antibiotics before coming here but was unable to identify name of medication. Will follow up.
--- NOTE | 2019-02-12 11:47 | Infectious Diseases Prog Note ---
Assessment/Plan Assessment/Plan Assessment: Abd pain, Nausea Recent food poisoning vs viral gastroenteritis PNA (+cough) -CT abd/p: The visualized lung bases to the scattered patchy pulmonary parenchymal infiltrates, most likely pneumonia. Limited assessment of the GI tract, due to lack of enteric contrast administration. No definite acute abdominal or pelvic process. Nonspecific mild endometrial thickening and fluid. Consider pelvic sonographic correlation as clinically indicated Possible collapsed left ovarian follicle. Mild superior endplate depression of the L1 vertebral body. Age indeterminate. Consider MRI for better characterization if clinically relevant Subcentimeter low-attenuation renal lesions, too small to characterize, most likely benign simple cortical cysts. No further follow-up necessary. Afebrile no leukocytosis -CXR: No definite acute process -u/a neg Elevated troponins legally blindness L side paralysis HIV ab screen neg Plan: -Continue PO Levaquin #4 (abx d #/) for PNA. -02/09 SP IV Vancomycin #2, Cefepime #2\ -02/08 SP Ceftriaxone x1 -f/u cx -Monitor CBC/CMP, temperatures -f/u sp cx Thank you for this consultation. Will continue to follow along with you. Discussed with RN. Subjective Allergies: Coded Allergies: No Known Allergies (Unverified , 02/08/19) Subjective afebrile no leukocytosis at 2l NC Objective Vital Signs Last 24 Hour Vital Signs Date Time Temp Pulse Resp B/P (MAP) Pulse Ox O2 Delivery O2 Flow Rate FiO2 02/12/19 09:00 Room Air 02/12/19 08:00 76 02/12/19 08:00 98.4 91 18 110/81 (91) 97 02/12/19 04:00 98.4 84 16 118/95 (103) 97 02/12/19 04:00 79 02/12/19 00:00 98.9 76 17 128/83 (98) 97 02/12/19 00:00 80 02/11/19 21:00 Room Air 02/11/19 20:00 98.2 83 16 114/80 (91) 98 02/11/19 20:00 74 02/11/19 16:00 98.6 74 20 106/78 (87) 95 02/11/19 16:00 78 02/11/19 12:00 76 02/11/19 12:00 97.9 64 20 126/86 (99) 94 Height (Feet): 5 Height (Inches): 0.00 Weight (Pounds): 140 Objective GENERAL: Calm in bed, O2 NC, slight short of breath. No complaint. CARDIOVASCULAR: No murmur. LUNGS: Distant and clear. ABDOMEN: Bowel sounds positive. Nontender. Nondistended. EXTREMITIES: No cyanosis, clubbing, or edema. Left hand contracture noted. NEUROLOGIC: The patient moves all extremities, slightly weak. Laboratory Tests Test 02/12/19 05:30 White Blood Count 3.7 K/UL (4.8-10.8) L Red Blood Count 4.77 M/UL (4.20-5.40) Hemoglobin 14.5 G/DL (12.0-16.0) Hematocrit 42.8 % (37.0-47.0) Mean Corpuscular Volume 90 FL (80-99) Mean Corpuscular Hemoglobin 30.5 PG (27.0-31.0) Mean Corpuscular Hemoglobin Concent 33.9 G/DL (32.0-36.0) Red Cell Distribution Width 10.4 % (11.6-14.8) L Platelet Count 239 K/UL (150-450) Mean Platelet Volume 7.5 FL (6.5-10.1) Neutrophils (%) (Auto) % (45.0-75.0) Lymphocytes (%) (Auto) % (20.0-45.0) Monocytes (%) (Auto) % (1.0-10.0) Eosinophils (%) (Auto) % (0.0-3.0) Basophils (%) (Auto) % (0.0-2.0) Differential Total Cells Counted 100 Neutrophils % (Manual) 63 % (45-75) Lymphocytes % (Manual) 11 % (20-45) L Monocytes % (Manual) 22 % (1-10) H Eosinophils % (Manual) 2 % (0-3) Basophils % (Manual) 2 % (0-2) Band Neutrophils 0 % (0-8) Platelet Estimate Adequate Platelet Morphology Normal Sodium Level 135 MMOL/L (136-145) L Potassium Level 3.6 MMOL/L (3.5-5.1) Chloride Level 103 MMOL/L (98-107) Carbon Dioxide Level 24 MMOL/L (21-32) Anion Gap 8 mmol/L (5-15) Blood Urea Nitrogen 11 mg/dL (7-18) Creatinine 0.6 MG/DL (0.55-1.30) Estimat Glomerular Filtration Rate > 60 mL/min (>60) Glucose Level 103 MG/DL (74-106) Calcium Level 8.5 MG/DL (8.5-10.1) Current Medications Medications (Trade) Dose Ordered Sig/Keron Route PRN Reason Start Time Stop Time Status Last Admin Dose Admin Acetaminophen (Tylenol) 650 mg Q4H PRN ORAL FEVER 02/08/19 17:48 03/10/19 17:47 Albuterol/ Ipratropium (Albuterol/ Ipratropium) 3 ml Q4H PRN HHN Shortness of Breath 02/08/19 17:45 02/13/19 17:44 Aspirin (ASA) 81 mg DAILY ORAL 02/11/19 12:30 03/13/19 12:29 02/12/19 08:51 Dextrose (Dextrose 50%) 25 ml Q30M PRN IV Hypoglycemia 02/08/19 17:45 03/10/19 17:44 Dextrose (Dextrose 50%) 50 ml Q30M PRN IV Hypoglycemia 02/08/19 17:45 03/10/19 17:44 Docusate Sodium (Colace) 100 mg TWICE A DAY ORAL 02/11/19 18:00 03/13/19 17:59 02/12/19 08:51 Heparin Sodium (Porcine) (Heparin 5000 units/ml) 5,000 units EVERY 12 HOURS SUBQ 02/08/19 21:00 03/10/19 20:59 02/12/19 08:54 Iopamidol (Isovue-300 100ml) 100 ml NOW PRN INJ Radiology Procedure 02/08/19 14:30 Levofloxacin (Levaquin) 500 mg DAILY ORAL 02/10/19 09:00 02/17/19 08:59 02/12/19 08:51 Morphine Sulfate (Morphine Sulfate) 2 mg Q4H PRN IVP Severe Pain (Pain Scale 7-10) 02/08/19 17:48 02/15/19 17:47 Ondansetron HCl (Zofran) 4 mg Q6H PRN IVP Nausea & Vomiting 02/08/19 17:45 03/10/19 17:44 02/12/19 02:51 Polyethylene Glycol (Miralax) 17 gm DAILYPRN PRN ORAL Constipation 02/08/19 17:45 03/10/19 17:44 Promethazine HCl/ Codeine (Phenergan with Codeine) 5 ml Q6H PRN ORAL For Cough 02/11/19 07:15 03/13/19 07:14 02/11/19 20:54 Regadenoson (Lexiscan) 0.4 mg ONCE IV 02/11/19 11:00 03/14/19 15:00 02/11/19 10:55 Sarah Kilpatrick M.D. Feb 12, 2019 11:47
--- NOTE | 2019-02-12 11:48 | Pulmonology Progress Note ---
Assessment/Plan Problems: (1) Non-ST elevation (NSTEMI) myocardial infarction (2) Blindness of both eyes (3) Gastroenteritis (4) Elevated troponin Assessment/Plan stress study was negative symptomatic treatment dc home if ok with cardiology Subjective ROS Limited/Unobtainable: No Allergies: Coded Allergies: No Known Allergies (Unverified , 02/08/19) Objective Last 24 Hour Vital Signs Date Time Temp Pulse Resp B/P (MAP) Pulse Ox O2 Delivery O2 Flow Rate FiO2 02/12/19 09:00 Room Air 02/12/19 08:00 76 02/12/19 08:00 98.4 91 18 110/81 (91) 97 02/12/19 04:00 98.4 84 16 118/95 (103) 97 02/12/19 04:00 79 02/12/19 00:00 98.9 76 17 128/83 (98) 97 02/12/19 00:00 80 02/11/19 21:00 Room Air 02/11/19 20:00 98.2 83 16 114/80 (91) 98 02/11/19 20:00 74 02/11/19 16:00 98.6 74 20 106/78 (87) 95 02/11/19 16:00 78 02/11/19 12:00 76 02/11/19 12:00 97.9 64 20 126/86 (99) 94 Intake and Output 02/11/19 02/12/19 19:00 07:00 Intake Total 380 ml 600 ml Balance 380 ml 600 ml Intake Oral 380 ml 600 ml # Voids 5 # Bowel Movements 1 1 General Appearance: WD/WN HEENT: normocephalic, atraumatic Respiratory/Chest: chest wall non-tender, lungs clear, normal breath sounds Cardiovascular: normal peripheral pulses, normal rate, regular rhythm Abdomen: normal bowel sounds, soft, non tender, no organomegaly Genitourinary: normal external genitalia Skin: no ulcers 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 normal Laboratory Tests 02/12/19 05:30: White Blood Count 3.7L, Red Blood Count 4.77, Hemoglobin 14.5, Hematocrit 42.8, Mean Corpuscular Volume 90, Mean Corpuscular Hemoglobin 30.5, Mean Corpuscular Hemoglobin Concent 33.9, Red Cell Distribution Width 10.4L, Platelet Count 239, Mean Platelet Volume 7.5, Neutrophils (%) (Auto) , Lymphocytes (%) (Auto) , Monocytes (%) (Auto) , Eosinophils (%) (Auto) , Basophils (%) (Auto) , Differential Total Cells Counted 100, Neutrophils % (Manual) 63, Lymphocytes % ( Manual) 11L, Monocytes % (Manual) 22H, Eosinophils % (Manual) 2, Basophils % ( Manual) 2, Band Neutrophils 0, Platelet Estimate Adequate, Platelet Morphology Normal, Sodium Level 135L, Potassium Level 3.6, Chloride Level 103, Carbon Dioxide Level 24, Anion Gap 8, Blood Urea Nitrogen 11, Creatinine 0.6, Estimat Glomerular Filtration Rate > 60, Glucose Level 103, Calcium Level 8.5 Current Medications Medications (Trade) Dose Ordered Sig/Keron Route PRN Reason Start Time Stop Time Status Last Admin Dose Admin Acetaminophen (Tylenol) 650 mg Q4H PRN ORAL FEVER 02/08/19 17:48 03/10/19 17:47 Albuterol/ Ipratropium (Albuterol/ Ipratropium) 3 ml Q4H PRN HHN Shortness of Breath 02/08/19 17:45 02/13/19 17:44 Aspirin (ASA) 81 mg DAILY ORAL 02/11/19 12:30 03/13/19 12:29 02/12/19 08:51 Dextrose (Dextrose 50%) 25 ml Q30M PRN IV Hypoglycemia 02/08/19 17:45 03/10/19 17:44 Dextrose (Dextrose 50%) 50 ml Q30M PRN IV Hypoglycemia 02/08/19 17:45 03/10/19 17:44 Docusate Sodium (Colace) 100 mg TWICE A DAY ORAL 02/11/19 18:00 03/13/19 17:59 02/12/19 08:51 Heparin Sodium (Porcine) (Heparin 5000 units/ml) 5,000 units EVERY 12 HOURS SUBQ 02/08/19 21:00 03/10/19 20:59 02/12/19 08:54 Iopamidol (Isovue-300 100ml) 100 ml NOW PRN INJ Radiology Procedure 02/08/19 14:30 Levofloxacin (Levaquin) 500 mg DAILY ORAL 02/10/19 09:00 02/17/19 08:59 02/12/19 08:51 Morphine Sulfate (Morphine Sulfate) 2 mg Q4H PRN IVP Severe Pain (Pain Scale 7-10) 02/08/19 17:48 02/15/19 17:47 Ondansetron HCl (Zofran) 4 mg Q6H PRN IVP Nausea & Vomiting 02/08/19 17:45 03/10/19 17:44 02/12/19 02:51 Polyethylene Glycol (Miralax) 17 gm DAILYPRN PRN ORAL Constipation 02/08/19 17:45 03/10/19 17:44 Promethazine HCl/ Codeine (Phenergan with Codeine) 5 ml Q6H PRN ORAL For Cough 02/11/19 07:15 03/13/19 07:14 02/11/19 20:54 Regadenoson (Lexiscan) 0.4 mg ONCE IV 02/11/19 11:00 03/14/19 15:00 02/11/19 10:55 Mary Martinez MD Feb 12, 2019 11:48
[2019-02-12 12:00] VITALS: BP 105/66
--- NOTE | 2019-02-12 12:12 | NUR ---
NURSE NOTES: Informed Dr. Kilpatrick Pt's antibiotic order for her eyes before coming here. MD visit Pt.
[2019-02-12] MEDS: Promethazine/Codeine 5ml UD ORAL PRN (14:16)
--- NOTE | 2019-02-12 15:10 | NUR ---
NURSE NOTES: Sent Pt's own medication (eye drop) to pharmacy. To be dispensed per protocol.
[2019-02-12 16:00] VITALS: BP 117/62
--- NOTE | 2019-02-12 16:10 | NUR ---
NURSE NOTES: Pt. on her period.
--- NOTE | 2019-02-12 16:19 | General Progress Note ---
Assessment/Plan Problem List: (1) Elevated troponin ICD Codes: R74.8 - Abnormal levels of other serum enzymes SNOMED: 375965498, 022163949, 808334794 (2) SOB (shortness of breath) ICD Codes: R06.02 - Shortness of breath SNOMED: 174843966 (3) Pneumonia ICD Codes: J18.9 - Pneumonia, unspecified organism SNOMED: 615435409 (4) Abdominal pain ICD Codes: R10.9 - Unspecified abdominal pain SNOMED: 44715290 Status: stable, progressing Assessment/Plan: o2 pulm tx gi id cardio f/u cbc bmp am dc plan w hh Subjective Constitutional: Reports: weakness Allergies: Coded Allergies: No Known Allergies (Unverified , 02/08/19) All Systems: reviewed and negative except above Subjective calm in bed Objective Last 24 Hour Vital Signs Date Time Temp Pulse Resp B/P (MAP) Pulse Ox O2 Delivery O2 Flow Rate FiO2 02/12/19 12:00 98.5 96 18 105/66 (79) 98 02/12/19 12:00 86 02/12/19 09:00 Room Air 02/12/19 08:00 76 02/12/19 08:00 98.4 91 18 110/81 (91) 97 02/12/19 04:00 98.4 84 16 118/95 (103) 97 02/12/19 04:00 79 02/12/19 00:00 98.9 76 17 128/83 (98) 97 02/12/19 00:00 80 02/11/19 21:00 Room Air 02/11/19 20:00 98.2 83 16 114/80 (91) 98 02/11/19 20:00 74 Intake and Output 02/11/19 02/12/19 19:00 07:00 Intake Total 380 ml 600 ml Balance 380 ml 600 ml Intake Oral 380 ml 600 ml # Voids 5 # Bowel Movements 1 1 Laboratory Tests 02/12/19 05:30: White Blood Count 3.7L, Red Blood Count 4.77, Hemoglobin 14.5, Hematocrit 42.8, Mean Corpuscular Volume 90, Mean Corpuscular Hemoglobin 30.5, Mean Corpuscular Hemoglobin Concent 33.9, Red Cell Distribution Width 10.4L, Platelet Count 239, Mean Platelet Volume 7.5, Neutrophils (%) (Auto) , Lymphocytes (%) (Auto) , Monocytes (%) (Auto) , Eosinophils (%) (Auto) , Basophils (%) (Auto) , Differential Total Cells Counted 100, Neutrophils % (Manual) 63, Lymphocytes % ( Manual) 11L, Monocytes % (Manual) 22H, Eosinophils % (Manual) 2, Basophils % ( Manual) 2, Band Neutrophils 0, Platelet Estimate Adequate, Platelet Morphology Normal, Sodium Level 135L, Potassium Level 3.6, Chloride Level 103, Carbon Dioxide Level 24, Anion Gap 8, Blood Urea Nitrogen 11, Creatinine 0.6, Estimat Glomerular Filtration Rate > 60, Glucose Level 103, Calcium Level 8.5 Height (Feet): 5 Height (Inches): 0.00 Weight (Pounds): 140 General Appearance: lethargic EENT: normal ENT inspection Neck: normal alignment Cardiovascular: normal peripheral pulses, normal rate, regular rhythm Respiratory/Chest: chest wall non-tender, lungs clear, normal breath sounds Abdomen: normal bowel sounds, non tender, soft Extremities: normal inspection Edema: no edema noted Arm (L), no edema noted Arm (R), no edema noted Leg (L), no edema noted Leg (R), no edema noted Pedal (L), no edema noted Pedal (R), no edema noted Generalized Neurologic: responsive, motor weakness Skin: normal pigmentation, warm/dry Shahriar Solorzano DO Feb 12, 2019 16:19
--- NOTE | 2019-02-12 16:56 | NUR ---
CASE MANAGEMENT:REVIEW 02/12/19 SI: NSTEMI 98.5 86 18 105/66 98% ON RA IS: ASA PO QD LEVAQUIN PO QD HEPARIN SQ Q12 IV ZOFRAN Q6HRS PRN : TELEMETRY STATUS DCP: FROM HOME PLAN: DISCHARGE PLANNING FOR HOME WITH "[facility]"
--- NOTE | 2019-02-12 17:01 | NUR ---
DISCHARGE PLAN PLAN IS TO DISCHARGE HOME ONCE NURSING RECEIVES CLEARANCE FROM CARD PUNCHING MACHINE OPERATOR EXTRUSION PRESS OPERATOR HAS REFERRED PATIENT TO [facility] T: [phone] F: [phone] AND [phone]
--- NOTE | 2019-02-12 17:02 | NUR ---
NURSE NOTES: call placed to Dr Menezes to get clearance for discharge, message left.
--- NOTE | 2019-02-12 17:11 | NUR ---
NURSE NOTES: spoke with dr holden and he said stress test negative, pt can be discharge.
--- NOTE | 2019-02-12 17:32 | NUR ---
NURSE NOTES: DR JAMIL NOTIFIED THAT DR SMITH CLEARED PT, HE WANTS THE PT WALK FIRST AND IF STABLE PT CAN BE DISCHARGE, INFORMED PT THAT PT WAS TRYING TO WALK WITH PT AND SHE WAS COMPLAINING OF BEING DIZZY IN STANDING AND WITH PAIN, NOTIFIED DR JAMIL AND HE SAID TO GET CLEARANCE FROM DR ZUÑIGA AND PT, DC PLAN IN AM.
--- NOTE | 2019-02-12 19:28 | NUR ---
HAND-OFF: Report given to IRVING Coates. Patient in stable condition.
--- NOTE | 2019-02-12 19:29 | NUR ---
NURSE NOTES: Received patient from Anthony VILLATORO, Patient is awake and oriented x4, patient is blind in both eyes. IV site is Right hand 20g, patent and asymptomatic. Bed is locked, placed in lowest position, side rails up x3, patient is able to demonstrate how to use call light that is in reach. Will continue to monitor.
[2019-02-12 20:00] VITALS: BP 106/79
--- NOTE | 2019-02-12 23:10 | Cardiology Progress Note ---
Assessment/Plan Assessment/Plan 1. Elevated troponin I level in this patient likely due to sepsis, no wall motion abnormalities seen on 2D echo, nuclear stress test is non-ischemic. 2D echo also reveals LVEF of 65%. 2. Legally blind. 3. History of food poisoning. 4. History of left upper extremity paralysis. Subjective Subjective Sinus rhythm at rate of 86. Objective Last 24 Hour Vital Signs Date Time Temp Pulse Resp B/P (MAP) Pulse Ox O2 Delivery O2 Flow Rate FiO2 02/12/19 21:00 Room Air 02/12/19 20:02 86 02/12/19 20:00 97.7 91 20 106/79 (88) 92 02/12/19 16:00 84 02/12/19 16:00 98.1 99 18 117/62 (80) 99 02/12/19 12:00 98.5 96 18 105/66 (79) 98 02/12/19 12:00 86 02/12/19 09:00 Room Air 02/12/19 08:00 76 02/12/19 08:00 98.4 91 18 110/81 (91) 97 02/12/19 04:00 98.4 84 16 118/95 (103) 97 02/12/19 04:00 79 02/12/19 00:00 98.9 76 17 128/83 (98) 97 02/12/19 00:00 80 Intake and Output 02/11/19 02/12/19 18:59 06:59 Intake Total 380 ml 600 ml Balance 380 ml 600 ml Intake Oral 380 ml 600 ml # Voids 5 # Bowel Movements 1 1 2D Echo: LVEF 55%, Mild LVH, RVSP 7 mmHg, Grade I LVDD Laboratory Tests Test 02/12/19 05:30 White Blood Count 3.7 K/UL (4.8-10.8) L Red Blood Count 4.77 M/UL (4.20-5.40) Hemoglobin 14.5 G/DL (12.0-16.0) Hematocrit 42.8 % (37.0-47.0) Mean Corpuscular Volume 90 FL (80-99) Mean Corpuscular Hemoglobin 30.5 PG (27.0-31.0) Mean Corpuscular Hemoglobin Concent 33.9 G/DL (32.0-36.0) Red Cell Distribution Width 10.4 % (11.6-14.8) L Platelet Count 239 K/UL (150-450) Mean Platelet Volume 7.5 FL (6.5-10.1) Neutrophils (%) (Auto) % (45.0-75.0) Lymphocytes (%) (Auto) % (20.0-45.0) Monocytes (%) (Auto) % (1.0-10.0) Eosinophils (%) (Auto) % (0.0-3.0) Basophils (%) (Auto) % (0.0-2.0) Differential Total Cells Counted 100 Neutrophils % (Manual) 63 % (45-75) Lymphocytes % (Manual) 11 % (20-45) L Monocytes % (Manual) 22 % (1-10) H Eosinophils % (Manual) 2 % (0-3) Basophils % (Manual) 2 % (0-2) Band Neutrophils 0 % (0-8) Platelet Estimate Adequate Platelet Morphology Normal Sodium Level 135 MMOL/L (136-145) L Potassium Level 3.6 MMOL/L (3.5-5.1) Chloride Level 103 MMOL/L (98-107) Carbon Dioxide Level 24 MMOL/L (21-32) Anion Gap 8 mmol/L (5-15) Blood Urea Nitrogen 11 mg/dL (7-18) Creatinine 0.6 MG/DL (0.55-1.30) Estimat Glomerular Filtration Rate > 60 mL/min (>60) Glucose Level 103 MG/DL (74-106) Calcium Level 8.5 MG/DL (8.5-10.1) Objective HEENT: Atraumatic, anicteric, PERRLA, EOMI, B/L Blindness NECK: JVP <5 cm, No carotid bruit, carotid upstroke 2+ B/L CVS: Normal S1S2, No murmurs, gallops or rubs, RRR LUNGS: Clear to auscultation. ABDOMEN: Soft non-tender, non-distended, no hepatosplenomegaly, +BS EXT: No evidence of edema, clubbing or cyanosis. Girma Menezes MD Feb 12, 2019 23:10
[2019-02-13] VITALS: BP 127/78
[2019-02-13 04:00] VITALS: BP 119/90
--- NOTE | 2019-02-13 07:04 | NUR ---
HAND-OFF: Report given to Magda VILLATORO. Patient in stable condition.
[2019-02-13 07:12] LABS: BASOPHILS % (AUTO) 1.1 % (0.0-2.0); EOSINOPHILS % (AUTO) 1.8 % (0.0-3.0); HEMATOCRIT 42.4 % (37.0-47.0); HEMOGLOBIN 14.3 G/DL (12.0-16.0); LYMPHOCYTES % (AUTO) 14.1 % (20.0-45.0); MEAN CORPUSCULAR VOLUME 89 FL (80-99); MONOCYTES % (AUTO) 17.5 % (1.0-10.0); NEUTROPHILS % (AUTO) 65.4 % (45.0-75.0); PLATELET COUNT 240 K/UL (150-450); RED BLOOD COUNT 4.75 M/UL (4.20-5.40); RED CELL DISTRIBUTION WIDTH 10.6 % (11.6-14.8); WHITE BLOOD COUNT 4.7 K/UL (4.8-10.8)
--- NOTE | 2019-02-13 07:13 | NUR ---
NURSE NOTES: Received report from IRVING Coates. The patient is resting on the bed without acute distress or shortness of breath. The patient still has elevated Troponin but negative result on Nette scan. The patient's bed in the lowest position, call light in reach, and fall and aspiration precaution reinforced. Will continue plan of care.
[2019-02-13 07:26] LABS: ALANINE AMINOTRANSFERASE 543 U/L (12-78); ALBUMIN 2.7 G/DL (3.4-5.0); ALBUMIN/GLOBULIN RATIO 0.6 (1.0-2.7); ALKALINE PHOSPHATASE 323 U/L (46-116); ANION GAP 11 mmol/L (5-15); ASPARTATE AMINO TRANSFERASE 601 U/L (15-37); BILIRUBIN,TOTAL 0.7 MG/DL (0.2-1.0); BLOOD UREA NITROGEN 13 mg/dL (7-18); CARBON DIOXIDE 22 MMOL/L (21-32); CHLORIDE 103 MMOL/L (98-107); CREATININE 0.5 MG/DL (0.55-1.30); POTASSIUM 3.5 MMOL/L (3.5-5.1); SODIUM 135 MMOL/L (136-145)
[2019-02-13 08:00] VITALS: BP 109/76
--- NOTE | 2019-02-13 08:12 | NUR ---
CASE MANAGEMENT:REVIEW 02/13/19 SI: NSTEMI 97.7 87 20 119/90 95% ON RA AST/ALT+601/543 IS: ASA PO QD LEVAQUIN PO QD HEPARIN SQ Q12 IV ZOFRAN Q6HRS PRN : TELEMETRY STATUS DCP: FROM HOME PLAN: DISCHARGE PLANNING FOR HOME WITH "[facility]" ~ FAXED CLEARED BY [employer] FOR DISCHARGE
--- NOTE | 2019-02-13 08:15 | NUR ---
DISCHARGE PLANNING PATIENT WAS CLEARED BY CARDIOLOGY YESTERDAY FOR DISCHARGE. DR JAMIL WAS NOTIFIED BY NURSING BUT WOULD NOT GIVE DISCHARGE ORDER PATIENT HAS BEEN REFERRED TO "[facility]"
[2019-02-13] MEDS: Heparin 5000 units/ml inj SUBQ SCH ×2 (09:08→21:41)
[2019-02-13] MEDS: Docusate 100mg cap ORAL SCH ×2 (09:09→17:27)
[2019-02-13] MEDS: Aspirin Baby 81mg ORAL SCH (09:09)
--- NOTE | 2019-02-13 09:26 | General Progress Note ---
Assessment/Plan Problem List: (1) Elevated troponin ICD Codes: R74.8 - Abnormal levels of other serum enzymes SNOMED: 860401873, 369514861, 308955496 (2) SOB (shortness of breath) ICD Codes: R06.02 - Shortness of breath SNOMED: 603832857 (3) Pneumonia ICD Codes: J18.9 - Pneumonia, unspecified organism SNOMED: 424598434 (4) Abdominal pain ICD Codes: R10.9 - Unspecified abdominal pain SNOMED: 44398523 Status: stable, progressing Assessment/Plan: o2 pulm tx gi id cardio f/u cbc bmp am dc w hh if clear Subjective Constitutional: Reports: weakness Allergies: Coded Allergies: No Known Allergies (Unverified , 02/08/19) All Systems: reviewed and negative except above Subjective calm in bed Objective Last 24 Hour Vital Signs Date Time Temp Pulse Resp B/P (MAP) Pulse Ox O2 Delivery O2 Flow Rate FiO2 02/13/19 08:31 89 20 100 Room Air 21 02/13/19 08:27 87 22 98 Room Air 21 02/13/19 08:26 87 22 98 Room Air 21 02/13/19 08:00 97.9 92 20 109/76 (87) 95 02/13/19 04:00 97.7 101 20 119/90 (100) 95 02/13/19 03:24 87 02/13/19 00:00 97.7 90 20 127/78 (94) 95 02/12/19 23:29 92 02/12/19 21:00 Room Air 02/12/19 20:02 86 02/12/19 20:00 97.7 91 20 106/79 (88) 92 02/12/19 16:00 84 02/12/19 16:00 98.1 99 18 117/62 (80) 99 02/12/19 12:00 98.5 96 18 105/66 (79) 98 02/12/19 12:00 86 Intake and Output 02/12/19 02/13/19 19:00 07:00 Intake Total 540 ml Output Total 400 ml Balance 540 ml -400 ml Intake Oral 540 ml Output Urine Total 400 ml # Voids 4 3 # Bowel Movements 1 Laboratory Tests 02/13/19 06:08: White Blood Count 4.7L, Red Blood Count 4.75, Hemoglobin 14.3, Hematocrit 42.4, Mean Corpuscular Volume 89, Mean Corpuscular Hemoglobin 30.0, Mean Corpuscular Hemoglobin Concent 33.6, Red Cell Distribution Width 10.6L, Platelet Count 240, Mean Platelet Volume 7.3, Neutrophils (%) (Auto) 65.4, Lymphocytes (%) (Auto) 14.1L, Monocytes (%) (Auto) 17.5H, Eosinophils (%) (Auto) 1.8, Basophils (%) ( Auto) 1.1, Sodium Level 135L, Potassium Level 3.5, Chloride Level 103, Carbon Dioxide Level 22, Anion Gap 11, Blood Urea Nitrogen 13, Creatinine 0.5L, Estimat Glomerular Filtration Rate > 60, Glucose Level 100, Calcium Level 8.0L, Total Bilirubin 0.7, Aspartate Amino Transf (AST/SGOT) 601H, Alanine Aminotransferase (ALT/SGPT) 543H, Alkaline Phosphatase 323H, Total Protein 7.0, Albumin 2.7L, Globulin 4.3, Albumin/Globulin Ratio 0.6L Height (Feet): 5 Height (Inches): 0.00 Weight (Pounds): 141 General Appearance: lethargic EENT: normal ENT inspection Neck: normal alignment Cardiovascular: normal peripheral pulses, normal rate, regular rhythm Respiratory/Chest: chest wall non-tender, lungs clear, normal breath sounds Abdomen: normal bowel sounds, non tender, soft Extremities: normal inspection Edema: no edema noted Arm (L), no edema noted Arm (R), no edema noted Leg (L), no edema noted Leg (R), no edema noted Pedal (L), no edema noted Pedal (R), no edema noted Generalized Neurologic: motor weakness Skin: normal pigmentation, warm/dry Shahriar Solorzano DO Feb 13, 2019 09:26
--- NOTE | 2019-02-13 10:00 | GI Progress Note ---
Assessment/Plan Problems: (1) Gastroenteritis ICD Codes: K52.9 - Noninfective gastroenteritis and colitis, unspecified SNOMED: 89152844 (2) Elevated troponin ICD Codes: R74.8 - Abnormal levels of other serum enzymes SNOMED: 067664052, 890034044, 777723764 (3) Abdominal pain ICD Codes: R10.9 - Unspecified abdominal pain SNOMED: 12293819 (4) Pneumonia ICD Codes: J18.9 - Pneumonia, unspecified organism SNOMED: 323935676 (5) SOB (shortness of breath) ICD Codes: R06.02 - Shortness of breath SNOMED: 409956578 Status: unchanged Status Narrative Discussed with Dr. Arana. Assessment/Plan Assessment - resolved abd pain - resolving N/V - resolved diarrhea - possibly viral gastroenteritis - sudden spike in LFTs, normal on admission Recommendations - advance diet - symptomatic treatment - IV and p.o. hydration plus electrolyte correction - follow up cardiology recs - avoid hepatotoxics -We will need follow-up with PCP to monitor LFT The patient was seen and examined at bedside and all new and available data was reviewed in the patients chart. I agree with the above findings, impression and plan. (Patient seen earlier today. Signature stamp does not reflect patient encounter time.). - Adithya Arana MD Subjective Subjective No recurrent vomiting generalized pain Objective Last 24 Hour Vital Signs Date Time Temp Pulse Resp B/P (MAP) Pulse Ox O2 Delivery O2 Flow Rate FiO2 02/13/19 08:31 89 20 100 Room Air 21 02/13/19 08:27 87 22 98 Room Air 21 02/13/19 08:26 87 22 98 Room Air 21 02/13/19 08:00 97.9 92 20 109/76 (87) 95 02/13/19 04:00 97.7 101 20 119/90 (100) 95 02/13/19 03:24 87 02/13/19 00:00 97.7 90 20 127/78 (94) 95 02/12/19 23:29 92 02/12/19 21:00 Room Air 02/12/19 20:02 86 02/12/19 20:00 97.7 91 20 106/79 (88) 92 02/12/19 16:00 84 02/12/19 16:00 98.1 99 18 117/62 (80) 99 02/12/19 12:00 98.5 96 18 105/66 (79) 98 02/12/19 12:00 86 Intake and Output 02/12/19 02/13/19 19:00 07:00 Intake Total 540 ml Output Total 400 ml Balance 540 ml -400 ml Intake Oral 540 ml Output Urine Total 400 ml # Voids 4 3 # Bowel Movements 1 Laboratory Tests Test 02/13/19 06:08 White Blood Count 4.7 K/UL (4.8-10.8) L Red Blood Count 4.75 M/UL (4.20-5.40) Hemoglobin 14.3 G/DL (12.0-16.0) Hematocrit 42.4 % (37.0-47.0) Mean Corpuscular Volume 89 FL (80-99) Mean Corpuscular Hemoglobin 30.0 PG (27.0-31.0) Mean Corpuscular Hemoglobin Concent 33.6 G/DL (32.0-36.0) Red Cell Distribution Width 10.6 % (11.6-14.8) L Platelet Count 240 K/UL (150-450) Mean Platelet Volume 7.3 FL (6.5-10.1) Neutrophils (%) (Auto) 65.4 % (45.0-75.0) Lymphocytes (%) (Auto) 14.1 % (20.0-45.0) L Monocytes (%) (Auto) 17.5 % (1.0-10.0) H Eosinophils (%) (Auto) 1.8 % (0.0-3.0) Basophils (%) (Auto) 1.1 % (0.0-2.0) Sodium Level 135 MMOL/L (136-145) L Potassium Level 3.5 MMOL/L (3.5-5.1) Chloride Level 103 MMOL/L (98-107) Carbon Dioxide Level 22 MMOL/L (21-32) Anion Gap 11 mmol/L (5-15) Blood Urea Nitrogen 13 mg/dL (7-18) Creatinine 0.5 MG/DL (0.55-1.30) L Estimat Glomerular Filtration Rate > 60 mL/min (>60) Glucose Level 100 MG/DL (74-106) Calcium Level 8.0 MG/DL (8.5-10.1) L Total Bilirubin 0.7 MG/DL (0.2-1.0) Aspartate Amino Transf (AST/SGOT) 601 U/L (15-37) H Alanine Aminotransferase (ALT/SGPT) 543 U/L (12-78) H Alkaline Phosphatase 323 U/L (46-116) H Total Protein 7.0 G/DL (6.4-8.2) Albumin 2.7 G/DL (3.4-5.0) L Globulin 4.3 g/dL Albumin/Globulin Ratio 0.6 (1.0-2.7) L Height (Feet): 5 Height (Inches): 0.00 Weight (Pounds): 141 General Appearance: WD/WN, no apparent distress, alert Cardiovascular: normal rate Respiratory/Chest: normal breath sounds, no respiratory distress Abdominal Exam: normal bowel sounds, non tender, soft Extremities: normal range of motion, non-tender Objective legally blind Ovidio Berumen NP Feb 13, 2019 10:00
--- NOTE | 2019-02-13 10:32 | NUR ---
*-* INSURANCE *-* ALL CLINICALS HAVE BEEN FAXED TO: [facility] WILL TRACK THIS ADMIT PLEASE FAX THE REVIEW/CLINICAL P- [phone] F- [phone]...REVIEW/CLINICAL Addendum: 02/14/19 at 0942 by PAULINA LARSEN LVN LVN [facility]: JEANNINE T: [phone] [id number] REF# [id number]
--- NOTE | 2019-02-13 10:49 | Pulmonology Progress Note ---
Assessment/Plan Problems: (1) Non-ST elevation (NSTEMI) myocardial infarction (2) Blindness of both eyes (3) Gastroenteritis (4) Elevated troponin Assessment/Plan stress study was negative symptomatic treatment dc home if ok with cardiology Subjective ROS Limited/Unobtainable: No Constitutional: Reports: no symptoms HEENT: Repors: no symptoms Respiratory: Reports: no symptoms Allergies: Coded Allergies: No Known Allergies (Unverified , 02/08/19) Objective Last 24 Hour Vital Signs Date Time Temp Pulse Resp B/P (MAP) Pulse Ox O2 Delivery O2 Flow Rate FiO2 02/13/19 09:00 Room Air 02/13/19 08:31 89 20 100 Room Air 21 02/13/19 08:27 87 22 98 Room Air 21 02/13/19 08:26 87 22 98 Room Air 21 02/13/19 08:00 97.9 92 20 109/76 (87) 95 02/13/19 04:00 97.7 101 20 119/90 (100) 95 02/13/19 03:24 87 02/13/19 00:00 97.7 90 20 127/78 (94) 95 02/12/19 23:29 92 02/12/19 21:00 Room Air 02/12/19 20:02 86 02/12/19 20:00 97.7 91 20 106/79 (88) 92 02/12/19 16:00 84 02/12/19 16:00 98.1 99 18 117/62 (80) 99 02/12/19 12:00 98.5 96 18 105/66 (79) 98 02/12/19 12:00 86 Intake and Output 02/12/19 02/13/19 19:00 07:00 Intake Total 540 ml Output Total 400 ml Balance 540 ml -400 ml Intake Oral 540 ml Output Urine Total 400 ml # Voids 4 3 # Bowel Movements 1 General Appearance: WD/WN HEENT: normocephalic, atraumatic Respiratory/Chest: chest wall non-tender, lungs clear, normal breath sounds Cardiovascular: normal peripheral pulses, normal rate Abdomen: normal bowel sounds, soft, non tender Genitourinary: normal external genitalia Skin: no rash Laboratory Tests 02/13/19 06:08: White Blood Count 4.7L, Red Blood Count 4.75, Hemoglobin 14.3, Hematocrit 42.4, Mean Corpuscular Volume 89, Mean Corpuscular Hemoglobin 30.0, Mean Corpuscular Hemoglobin Concent 33.6, Red Cell Distribution Width 10.6L, Platelet Count 240, Mean Platelet Volume 7.3, Neutrophils (%) (Auto) 65.4, Lymphocytes (%) (Auto) 14.1L, Monocytes (%) (Auto) 17.5H, Eosinophils (%) (Auto) 1.8, Basophils (%) ( Auto) 1.1, Sodium Level 135L, Potassium Level 3.5, Chloride Level 103, Carbon Dioxide Level 22, Anion Gap 11, Blood Urea Nitrogen 13, Creatinine 0.5L, Estimat Glomerular Filtration Rate > 60, Glucose Level 100, Calcium Level 8.0L, Total Bilirubin 0.7, Aspartate Amino Transf (AST/SGOT) 601H, Alanine Aminotransferase (ALT/SGPT) 543H, Alkaline Phosphatase 323H, Total Protein 7.0, Albumin 2.7L, Globulin 4.3, Albumin/Globulin Ratio 0.6L Current Medications Medications (Trade) Dose Ordered Sig/Keron Route PRN Reason Start Time Stop Time Status Last Admin Dose Admin Acetaminophen (Tylenol) 650 mg Q4H PRN ORAL Mild Pain/Temp > 100.5 02/13/19 09:48 03/10/19 17:47 02/13/19 09:24 Albuterol/ Ipratropium (Albuterol/ Ipratropium) 3 ml Q4H PRN HHN Shortness of Breath 02/08/19 17:45 02/13/19 17:44 02/13/19 08:24 Aspirin (ASA) 81 mg DAILY ORAL 02/11/19 12:30 03/13/19 12:29 02/13/19 09:09 Dextrose (Dextrose 50%) 25 ml Q30M PRN IV Hypoglycemia 02/08/19 17:45 03/10/19 17:44 Dextrose (Dextrose 50%) 50 ml Q30M PRN IV Hypoglycemia 02/08/19 17:45 03/10/19 17:44 Docusate Sodium (Colace) 100 mg TWICE A DAY ORAL 02/11/19 18:00 03/13/19 17:59 02/13/19 09:09 Heparin Sodium (Porcine) (Heparin 5000 units/ml) 5,000 units EVERY 12 HOURS SUBQ 02/08/19 21:00 03/10/19 20:59 02/13/19 09:08 Morphine Sulfate (Morphine Sulfate) 2 mg Q4H PRN IVP Severe Pain (Pain Scale 7-10) 02/08/19 17:48 02/15/19 17:47 Ondansetron HCl (Zofran) 4 mg Q6H PRN IVP Nausea & Vomiting 02/08/19 17:45 03/10/19 17:44 02/13/19 04:40 Patient Own Medication (Patient's Own Med) 2 ea Q4HR BOTH EYES 02/12/19 17:00 03/14/19 16:59 02/13/19 09:12 Polyethylene Glycol (Miralax) 17 gm DAILYPRN PRN ORAL Constipation 02/08/19 17:45 03/10/19 17:44 Promethazine HCl/ Codeine (Phenergan with Codeine) 5 ml Q6H PRN ORAL For Cough 02/11/19 07:15 03/13/19 07:14 02/12/19 14:16 Mary Martinez MD Feb 13, 2019 10:49
--- NOTE | 2019-02-13 11:01 | NUR ---
NURSE NOTES: Notified YEN Monterroso regarding elevation of AST and ALT. Per YEN Monterroso no new order but follow up with PCP with blood test as soon as possible. Notified Dr. Menezes regarding elevation on Troponin and negative Nette scan. Waiting for clearance from Dr. Menezes, scaffolder. Per Aylin, physical therapy, the patient is still unstable and recommended rehab placement for continuation of care. Notified to Dr. Solorzano and case management for SNF placement ordered. Carried out the order.
[2019-02-13] MEDS ORDERED: ASPIRIN EC81 MG ORAL (11:09)
[2019-02-13] MEDS ORDERED: ACETAMINOPHEN325 M1 ORAL (11:09)
[2019-02-13] MEDS ORDERED: DOCUSATE SODIU100 MG ORAL (11:10)
--- NOTE | 2019-02-13 11:31 | NUR ---
NURSE NOTES: Informed Jeanine, the block and case maker, regarding change in case management consult from home with home health to SNF placement for further care. Will wait for response from Jeanien. Will continue plan of care.
--- NOTE | 2019-02-13 11:33 | NUR ---
DISCHARGE PLAN INITIAL DISCHARGE PLAN WAS FOR HOME WITH HOME HEALTH PLAN HAS NOW ABRUPTLY CHANGED TO SNF PLACEMENT [employer] HAS FAXED CLINICALS TO JACK [facility] T: [phone] [facility] T: [phone] [facility] T: [phone] [facility] T: [phone] [facility] T:[phone]
[2019-02-13 12:00] VITALS: BP 111/74
--- NOTE | 2019-02-13 13:46 | NUR ---
NURSE NOTES: Per Dr. Menezes's other nursing order, the patient is okay to be discharged at cardiac stand point. Will continue plan of care.
--- NOTE | 2019-02-13 14:06 | Infectious Diseases Prog Note ---
Assessment/Plan Assessment/Plan Assessment: Abd pain, Nausea Recent food poisoning vs viral gastroenteritis PNA (+cough) -CT abd/p: The visualized lung bases to the scattered patchy pulmonary parenchymal infiltrates, most likely pneumonia. Limited assessment of the GI tract, due to lack of enteric contrast administration. No definite acute abdominal or pelvic process. Nonspecific mild endometrial thickening and fluid. Consider pelvic sonographic correlation as clinically indicated Possible collapsed left ovarian follicle. Mild superior endplate depression of the L1 vertebral body. Age indeterminate. Consider MRI for better characterization if clinically relevant Subcentimeter low-attenuation renal lesions, too small to characterize, most likely benign simple cortical cysts. No further follow-up necessary. Afebrile no leukocytosis -CXR: No definite acute process -u/a neg Elevated troponins legally blindness L side paralysis HIV ab screen neg Plan: -Continue to monitor off abx -02/12 SP Levaquin #4 -02/09 SP IV Vancomycin #2, Cefepime #2\ -02/08 SP Ceftriaxone x1 -f/u cx -Monitor CBC/CMP, temperatures Thank you for this consultation. Will continue to follow along with you. Discussed with RN. Subjective Allergies: Coded Allergies: No Known Allergies (Unverified , 02/08/19) Subjective afebrile no leukocytosis at 2l NC Objective Vital Signs Last 24 Hour Vital Signs Date Time Temp Pulse Resp B/P (MAP) Pulse Ox O2 Delivery O2 Flow Rate FiO2 02/13/19 12:00 98.3 87 20 111/74 (86) 96 02/13/19 12:00 81 02/13/19 09:00 Room Air 02/13/19 08:31 89 20 100 Room Air 21 02/13/19 08:27 87 22 98 Room Air 21 02/13/19 08:26 87 22 98 Room Air 21 02/13/19 08:00 79 02/13/19 08:00 97.9 92 20 109/76 (87) 95 02/13/19 04:00 97.7 101 20 119/90 (100) 95 02/13/19 03:24 87 02/13/19 00:00 97.7 90 20 127/78 (94) 95 02/12/19 23:29 92 02/12/19 21:00 Room Air 02/12/19 20:02 86 02/12/19 20:00 97.7 91 20 106/79 (88) 92 02/12/19 16:00 84 02/12/19 16:00 98.1 99 18 117/62 (80) 99 Height (Feet): 5 Height (Inches): 0.00 Weight (Pounds): 141 Objective GENERAL: Calm in bed, O2 NC, slight short of breath. No complaint. CARDIOVASCULAR: No murmur. LUNGS: Distant and clear. ABDOMEN: Bowel sounds positive. Nontender. Nondistended. EXTREMITIES: No cyanosis, clubbing, or edema. Left hand contracture noted. NEUROLOGIC: The patient moves all extremities, slightly weak. Laboratory Tests Test 02/13/19 06:08 White Blood Count 4.7 K/UL (4.8-10.8) L Red Blood Count 4.75 M/UL (4.20-5.40) Hemoglobin 14.3 G/DL (12.0-16.0) Hematocrit 42.4 % (37.0-47.0) Mean Corpuscular Volume 89 FL (80-99) Mean Corpuscular Hemoglobin 30.0 PG (27.0-31.0) Mean Corpuscular Hemoglobin Concent 33.6 G/DL (32.0-36.0) Red Cell Distribution Width 10.6 % (11.6-14.8) L Platelet Count 240 K/UL (150-450) Mean Platelet Volume 7.3 FL (6.5-10.1) Neutrophils (%) (Auto) 65.4 % (45.0-75.0) Lymphocytes (%) (Auto) 14.1 % (20.0-45.0) L Monocytes (%) (Auto) 17.5 % (1.0-10.0) H Eosinophils (%) (Auto) 1.8 % (0.0-3.0) Basophils (%) (Auto) 1.1 % (0.0-2.0) Sodium Level 135 MMOL/L (136-145) L Potassium Level 3.5 MMOL/L (3.5-5.1) Chloride Level 103 MMOL/L (98-107) Carbon Dioxide Level 22 MMOL/L (21-32) Anion Gap 11 mmol/L (5-15) Blood Urea Nitrogen 13 mg/dL (7-18) Creatinine 0.5 MG/DL (0.55-1.30) L Estimat Glomerular Filtration Rate > 60 mL/min (>60) Glucose Level 100 MG/DL (74-106) Calcium Level 8.0 MG/DL (8.5-10.1) L Total Bilirubin 0.7 MG/DL (0.2-1.0) Aspartate Amino Transf (AST/SGOT) 601 U/L (15-37) H Alanine Aminotransferase (ALT/SGPT) 543 U/L (12-78) H Alkaline Phosphatase 323 U/L (46-116) H Total Protein 7.0 G/DL (6.4-8.2) Albumin 2.7 G/DL (3.4-5.0) L Globulin 4.3 g/dL Albumin/Globulin Ratio 0.6 (1.0-2.7) L Current Medications Medications (Trade) Dose Ordered Sig/Keron Route PRN Reason Start Time Stop Time Status Last Admin Dose Admin Acetaminophen (Tylenol) 650 mg Q4H PRN ORAL Mild Pain/Temp > 100.5 02/13/19 09:48 03/10/19 17:47 02/13/19 09:24 Albuterol/ Ipratropium (Albuterol/ Ipratropium) 3 ml Q4H PRN HHN Shortness of Breath 02/08/19 17:45 02/13/19 17:44 02/13/19 08:24 Aspirin (ASA) 81 mg DAILY ORAL 02/11/19 12:30 03/13/19 12:29 02/13/19 09:09 Dextrose (Dextrose 50%) 25 ml Q30M PRN IV Hypoglycemia 02/08/19 17:45 03/10/19 17:44 Dextrose (Dextrose 50%) 50 ml Q30M PRN IV Hypoglycemia 02/08/19 17:45 03/10/19 17:44 Docusate Sodium (Colace) 100 mg TWICE A DAY ORAL 02/11/19 18:00 03/13/19 17:59 02/13/19 09:09 Heparin Sodium (Porcine) (Heparin 5000 units/ml) 5,000 units EVERY 12 HOURS SUBQ 02/08/19 21:00 03/10/19 20:59 02/13/19 09:08 Morphine Sulfate (Morphine Sulfate) 2 mg Q4H PRN IVP Severe Pain (Pain Scale 7-10) 02/08/19 17:48 02/15/19 17:47 Ondansetron HCl (Zofran) 4 mg Q6H PRN IVP Nausea & Vomiting 02/08/19 17:45 03/10/19 17:44 02/13/19 04:40 Patient Own Medication (Patient's Own Med) 2 ea Q4HR BOTH EYES 02/12/19 17:00 03/14/19 16:59 02/13/19 13:28 Polyethylene Glycol (Miralax) 17 gm DAILYPRN PRN ORAL Constipation 02/08/19 17:45 03/10/19 17:44 Promethazine HCl/ Codeine (Phenergan with Codeine) 5 ml Q6H PRN ORAL For Cough 02/11/19 07:15 03/13/19 07:14 02/12/19 14:16 Sarah Kilpatrick M.D. Feb 13, 2019 14:06
[2019-02-13 16:00] VITALS: BP 110/70
--- NOTE | 2019-02-13 16:24 | NUR ---
DISCHARGE PLAN FAXED TO [facility] ~ SW [place]EED ~ NO FEMALE BEDS [place] ~ SW NBA ~ SHE WILL CALL BACK [facility] ~ SW FILIBERTO ~ HE WILL CALL BACK [facility] ~ SW SOFI ~ DON;T HAVE CONTRACT WITH INSURANCE [facility] [place] ~ SW DANIELLE ~ NO FEMALE BEDS [place] ~ SW VALERIE ~ UNABLE TO MEET NEEDS OF A BLIND PERSON [facility] ~ SW RENARD ~ SHE WILL CALL BACK [facility] ~ SW VALENTIN ~ DON HAS GONE FOR THE DAY. WILL CALL US TOMORROW [facility] ~ SW ANAYA ~ THEY DO NOT HAVE A CONTRACT WITH INSURANCE [employer] ~ LEFT MESSAGE FOR ELIAS ~ WAITING FOR CALL BACK
[2019-02-13] MEDS ORDERED: D5 1/2NS 1000ml IV ONE (18:02)
[2019-02-13] MEDS ORDERED: NS 275ml ONE (18:02)
--- NOTE | 2019-02-13 19:36 | NUR ---
HAND-OFF: Report given to IRVING Lainez. The patient is resting on the bed without acute distress or shortness of breath. The patient's bed in the lowest position, call light in reach, and fall and aspiration precaution reinforced. Endorsed plan of care.
[2019-02-13 20:00] VITALS: BP 117/70
--- NOTE | 2019-02-13 20:51 | Cardiology Progress Note ---
Assessment/Plan Assessment/Plan 1. Elevated troponin I level in this patient likely due to sepsis, no wall motion abnormalities seen on 2D echo, nuclear stress test is non-ischemic. 2D echo also reveals LVEF of 65%. 2. Legally blind. 3. History of food poisoning. 4. History of left upper extremity paralysis. Subjective Subjective Sinus rhythm at rate of 86. Objective Last 24 Hour Vital Signs Date Time Temp Pulse Resp B/P (MAP) Pulse Ox O2 Delivery O2 Flow Rate FiO2 02/13/19 16:00 98.3 97 20 110/70 (83) 98 02/13/19 12:00 98.3 87 20 111/74 (86) 96 02/13/19 12:00 81 02/13/19 09:00 Room Air 02/13/19 08:31 89 20 100 Room Air 21 02/13/19 08:27 87 22 98 Room Air 21 02/13/19 08:26 87 22 98 Room Air 21 02/13/19 08:00 79 02/13/19 08:00 97.9 92 20 109/76 (87) 95 02/13/19 04:00 97.7 101 20 119/90 (100) 95 02/13/19 03:24 87 02/13/19 00:00 97.7 90 20 127/78 (94) 95 02/12/19 23:29 92 02/12/19 21:00 Room Air Intake and Output 02/12/19 02/13/19 19:00 07:00 Intake Total 540 ml Output Total 400 ml Balance 540 ml -400 ml Intake Oral 540 ml Output Urine Total 400 ml # Voids 4 3 # Bowel Movements 1 Laboratory Tests Test 02/13/19 06:08 White Blood Count 4.7 K/UL (4.8-10.8) L Red Blood Count 4.75 M/UL (4.20-5.40) Hemoglobin 14.3 G/DL (12.0-16.0) Hematocrit 42.4 % (37.0-47.0) Mean Corpuscular Volume 89 FL (80-99) Mean Corpuscular Hemoglobin 30.0 PG (27.0-31.0) Mean Corpuscular Hemoglobin Concent 33.6 G/DL (32.0-36.0) Red Cell Distribution Width 10.6 % (11.6-14.8) L Platelet Count 240 K/UL (150-450) Mean Platelet Volume 7.3 FL (6.5-10.1) Neutrophils (%) (Auto) 65.4 % (45.0-75.0) Lymphocytes (%) (Auto) 14.1 % (20.0-45.0) L Monocytes (%) (Auto) 17.5 % (1.0-10.0) H Eosinophils (%) (Auto) 1.8 % (0.0-3.0) Basophils (%) (Auto) 1.1 % (0.0-2.0) Sodium Level 135 MMOL/L (136-145) L Potassium Level 3.5 MMOL/L (3.5-5.1) Chloride Level 103 MMOL/L (98-107) Carbon Dioxide Level 22 MMOL/L (21-32) Anion Gap 11 mmol/L (5-15) Blood Urea Nitrogen 13 mg/dL (7-18) Creatinine 0.5 MG/DL (0.55-1.30) L Estimat Glomerular Filtration Rate > 60 mL/min (>60) Glucose Level 100 MG/DL (74-106) Calcium Level 8.0 MG/DL (8.5-10.1) L Total Bilirubin 0.7 MG/DL (0.2-1.0) Aspartate Amino Transf (AST/SGOT) 601 U/L (15-37) H Alanine Aminotransferase (ALT/SGPT) 543 U/L (12-78) H Alkaline Phosphatase 323 U/L (46-116) H Total Protein 7.0 G/DL (6.4-8.2) Albumin 2.7 G/DL (3.4-5.0) L Globulin 4.3 g/dL Albumin/Globulin Ratio 0.6 (1.0-2.7) L Objective HEENT: Atraumatic, anicteric, PERRLA, EOMI, B/L Blindness NECK: JVP <5 cm, No carotid bruit, carotid upstroke 2+ B/L CVS: Normal S1S2, No murmurs, gallops or rubs, RRR LUNGS: Clear to auscultation. ABDOMEN: Soft non-tender, non-distended, no hepatosplenomegaly, +BS EXT: No evidence of edema, clubbing or cyanosis. Girma Menezes MD Feb 13, 2019 20:51
--- NOTE | 2019-02-13 20:54 | NUR ---
NURSE NOTES: Received pt and report from IRVING Man. Observed pt resting in bed with both eyes closed. Pt is blind bilaterally. Arousable by voice. Pt has a med surg order; awaiting for bed assignment. classroom monitor removed, IV site intact, asymptomatic and patent. Bed is in the lowest position and locked. Call light within reach. No signs or symptoms of acute distress noted at this time. Will continue plan of care.
[2019-02-13] MEDS: Ketotifen Fumarate 0.035% 5ml BOTH EYES SCH (21:40)
[2019-02-13] MEDS: Promethazine/Codeine 5ml UD ORAL PRN (21:42)
[2019-02-14] VITALS: BP 106/69
--- NOTE | 2019-02-14 03:20 | NUR ---
NURSE NOTES: Received report from IRVING Lainez. Patient in bed asleep showing no signs of acute distress. Respiration even and non labored on room air. No sob noted. VS stable. Observed pt. with bilateral blindness. Call light within reach. Commode on bedside. IV on right hand SL patent and intact. Bed in lowest position, wheels locked and alarm on. Endorsed pt. to be transferred to [place], waiting for empty bed. Will continue plan of care.
--- NOTE | 2019-02-14 03:24 | NUR ---
HAND-OFF: Report given to IRVING Ying.
[2019-02-14 04:00] VITALS: BP_SYST 108; BP_SYST 117; BP_DIAS 77; BP_DIAS 91
[2019-02-14] MEDS: Promethazine/Codeine 5ml UD ORAL PRN (05:04)
[2019-02-14 07:08] LABS: BASOPHILS % (AUTO) 0.6 % (0.0-2.0); EOSINOPHILS % (AUTO) 1.9 % (0.0-3.0); HEMATOCRIT 42.3 % (37.0-47.0); HEMOGLOBIN 14.4 G/DL (12.0-16.0); LYMPHOCYTES % (AUTO) 15.5 % (20.0-45.0); MEAN CORPUSCULAR VOLUME 89 FL (80-99); MONOCYTES % (AUTO) 16.1 % (1.0-10.0); PLATELET COUNT 227 K/UL (150-450); RED BLOOD COUNT 4.76 M/UL (4.20-5.40); RED CELL DISTRIBUTION WIDTH 10.5 % (11.6-14.8)
[2019-02-14 07:22] LABS: ANION GAP 10 mmol/L (5-15); BLOOD UREA NITROGEN 16 mg/dL (7-18); CALCIUM 8.4 MG/DL (8.5-10.1); CARBON DIOXIDE 24 MMOL/L (21-32); CHLORIDE 102 MMOL/L (98-107); CREATININE 0.5 MG/DL (0.55-1.30); POTASSIUM 3.7 MMOL/L (3.5-5.1); SODIUM 136 MMOL/L (136-145)
--- NOTE | 2019-02-14 07:36 | NUR ---
HAND-OFF: Report given to IRVING Dacosta.
--- NOTE | 2019-02-14 07:39 | NUR ---
NURSE NOTES: Received report from IRVING Og. Patient is resting in bed, sleeping in semi-otoole's position. No signs of acute distress at this moment. Respiration even and non labored on room air. Bed in lowest position, side rails up x2, wheels locked. Call light and bed side table within reach. Will continue plan of care.
[2019-02-14] MEDS: Docusate 100mg cap ORAL SCH (08:23)
[2019-02-14] MEDS: Ketotifen Fumarate 0.035% 5ml BOTH EYES SCH (08:23)
[2019-02-14] MEDS: Aspirin Baby 81mg ORAL SCH (08:23)
[2019-02-14] MEDS: Heparin 5000 units/ml inj SUBQ SCH (08:24)
[2019-02-14 09:00] VITALS: BP 103/76
--- NOTE | 2019-02-14 09:09 | NUR ---
TRANSFER TO FLOOR: Patient transferred to Med- Surg, per Dr. Martinez's order. Report given to IRVING Ngo. Belongings and medications given to IRVING Ngo. Family informed of transfer. Patient transferred in stable condition.
--- NOTE | 2019-02-14 09:10 | NUR ---
NURSE NOTES: Received report from Melvi VILLATORO from tele. Pt transferred from tele to via hospital bed with RN. AOX4 and able to make needs known. Noted the pt with bilateral eyes blindness. No c/o pain at this time. BNo acute distress noted. Belonging list reviewed and updated. IV site Rhand 20G SL intact and asymptomatic. Noted Right elbow scratch due to friction from the bed per patient and no any other skin breakdown noted. Pt on the diaper due to current period. Bed in the lowest position and locked. Call light's in pt's hand. Bilateral side rails up for safety. Will continue to plan of care.
--- NOTE | 2019-02-14 09:31 | NUR ---
CASE MANAGEMENT:REVIEW 02/14/19 SI: NSTEMI. PNA LEGALLY BLIND. LT SIDE PARALYSIS 97.7 91 16 103/76 94% ON RA IS: ZATIDOR BOTH EYES Q12 TYLENOL PO Q4HRS PRN ASA PO QD HEPARIN SQ Q12 IV MORPHINE Q4HRS PRN : TELEMETRY STATUS DCP: FROM HOME PLAN: DISCHARGE PLANNING FOR HOME WITH "[facility]" ~ FAXED CLEARED BY ENGINEERING VICE PRESIDENT FOR DISCHARGE
--- NOTE | 2019-02-14 09:37 | NUR ---
DISCHARGE PLANNING [facility] IS INTERESTED IN ACCEPTING THIS PATIENT THEY ARE CURRENTLY REQUESTING AUTHORIZATION FROM [facility] DE LOS [facility] AT [facility] WITH DIRECT PHONE NUMBER FOR [employer]
[2019-02-14 10:23] LABS: ALANINE AMINOTRANSFERASE 571 U/L (12-78); ALKALINE PHOSPHATASE 334 U/L (46-116); ASPARTATE AMINO TRANSFERASE 560 U/L (15-37); BILIRUBIN,DIRECT 0.2 MG/DL (0.0-0.3); BILIRUBIN,TOTAL 0.6 MG/DL (0.2-1.0)
--- NOTE | 2019-02-14 10:25 | Infectious Diseases Prog Note ---
Assessment/Plan Assessment/Plan Assessment: Abd pain, Nausea Recent food poisoning vs viral gastroenteritis PNA (+cough) -CT abd/p: The visualized lung bases to the scattered patchy pulmonary parenchymal infiltrates, most likely pneumonia. Limited assessment of the GI tract, due to lack of enteric contrast administration. No definite acute abdominal or pelvic process. Nonspecific mild endometrial thickening and fluid. Consider pelvic sonographic correlation as clinically indicated Possible collapsed left ovarian follicle. Mild superior endplate depression of the L1 vertebral body. Age indeterminate. Consider MRI for better characterization if clinically relevant Subcentimeter low-attenuation renal lesions, too small to characterize, most likely benign simple cortical cysts. No further follow-up necessary. Afebrile no leukocytosis -CXR: No definite acute process -u/a neg Elevated troponins legally blindness L side paralysis HIV ab screen neg Plan: -Continue to monitor off abx -02/12 SP Levaquin #4 -02/09 SP IV Vancomycin #2, Cefepime #2\ -02/08 SP Ceftriaxone x1 -f/u cx -Monitor CBC/CMP, temperatures Thank you for this consultation. Will continue to follow along with you. Discussed with RN. Subjective Allergies: Coded Allergies: No Known Allergies (Unverified , 02/08/19) Subjective afebrile no leukocytosis at 2l NC Objective Vital Signs Last 24 Hour Vital Signs Date Time Temp Pulse Resp B/P (MAP) Pulse Ox O2 Delivery O2 Flow Rate FiO2 02/14/19 09:00 Room Air 02/14/19 09:00 97.7 91 16 103/76 (85) 94 02/14/19 04:00 99.0 101 21 108/77 (87) 95 02/14/19 00:00 98.7 93 17 106/69 (81) 95 02/13/19 21:00 Room Air 02/13/19 20:00 97.7 94 16 117/70 (86) 96 02/13/19 16:00 98.3 97 20 110/70 (83) 98 02/13/19 12:00 98.3 87 20 111/74 (86) 96 02/13/19 12:00 81 Height (Feet): 5 Height (Inches): 0.00 Weight (Pounds): 141 Objective GENERAL: Calm in bed, O2 NC, slight short of breath. No complaint. CARDIOVASCULAR: No murmur. LUNGS: Distant and clear. ABDOMEN: Bowel sounds positive. Nontender. Nondistended. EXTREMITIES: No cyanosis, clubbing, or edema. Left hand contracture noted. NEUROLOGIC: The patient moves all extremities, slightly weak. Laboratory Tests Test 02/14/19 06:15 White Blood Count 4.0 K/UL (4.8-10.8) L Red Blood Count 4.76 M/UL (4.20-5.40) Hemoglobin 14.4 G/DL (12.0-16.0) Hematocrit 42.3 % (37.0-47.0) Mean Corpuscular Volume 89 FL (80-99) Mean Corpuscular Hemoglobin 30.3 PG (27.0-31.0) Mean Corpuscular Hemoglobin Concent 34.1 G/DL (32.0-36.0) Red Cell Distribution Width 10.5 % (11.6-14.8) L Platelet Count 227 K/UL (150-450) Mean Platelet Volume 7.8 FL (6.5-10.1) Neutrophils (%) (Auto) 66.0 % (45.0-75.0) Lymphocytes (%) (Auto) 15.5 % (20.0-45.0) L Monocytes (%) (Auto) 16.1 % (1.0-10.0) H Eosinophils (%) (Auto) 1.9 % (0.0-3.0) Basophils (%) (Auto) 0.6 % (0.0-2.0) Sodium Level 136 MMOL/L (136-145) Potassium Level 3.7 MMOL/L (3.5-5.1) Chloride Level 102 MMOL/L (98-107) Carbon Dioxide Level 24 MMOL/L (21-32) Anion Gap 10 mmol/L (5-15) Blood Urea Nitrogen 16 mg/dL (7-18) Creatinine 0.5 MG/DL (0.55-1.30) L Estimat Glomerular Filtration Rate > 60 mL/min (>60) Glucose Level 109 MG/DL (74-106) H Calcium Level 8.4 MG/DL (8.5-10.1) L Total Bilirubin 0.6 MG/DL (0.2-1.0) Direct Bilirubin 0.2 MG/DL (0.0-0.3) Aspartate Amino Transf (AST/SGOT) 560 U/L (15-37) H Alanine Aminotransferase (ALT/SGPT) 571 U/L (12-78) H Alkaline Phosphatase 334 U/L (46-116) H Total Protein 6.9 G/DL (6.4-8.2) Albumin 3.0 G/DL (3.4-5.0) L Current Medications Medications (Trade) Dose Ordered Sig/Keron Route PRN Reason Start Time Stop Time Status Last Admin Dose Admin Acetaminophen (Tylenol) 650 mg Q4H PRN ORAL Mild Pain/Temp > 100.5 02/14/19 11:00 03/10/19 10:59 Aspirin (ASA) 81 mg DAILY ORAL 02/15/19 09:00 03/13/19 12:29 Dextrose (Dextrose 50%) 25 ml Q30M PRN IV Hypoglycemia 02/14/19 10:15 03/10/19 17:44 Dextrose (Dextrose 50%) 50 ml Q30M PRN IV Hypoglycemia 02/14/19 10:15 03/10/19 17:44 Docusate Sodium (Colace) 100 mg TWICE A DAY ORAL 02/14/19 18:00 03/13/19 17:59 Heparin Sodium (Porcine) (Heparin 5000 units/ml) 5,000 units EVERY 12 HOURS SUBQ 02/14/19 21:00 03/10/19 20:59 Ketotifen Fumarate (Zatidor) 1 drop Q12HR BOTH EYES 02/14/19 21:00 03/15/19 20:59 Morphine Sulfate (Morphine Sulfate) 2 mg Q4H PRN IVP Severe Pain (Pain Scale 7-10) 02/14/19 11:00 02/15/19 10:59 Ondansetron HCl (Zofran) 4 mg Q6H PRN IVP Nausea & Vomiting 02/14/19 11:45 03/10/19 17:44 Patient Own Medication (Patient's Own Med) 2 ea Q4HR BOTH EYES 02/14/19 13:00 03/16/19 12:59 Polyethylene Glycol (Miralax) 17 gm DAILYPRN PRN ORAL Constipation 02/14/19 11:00 03/10/19 10:59 Promethazine HCl/ Codeine (Phenergan with Codeine) 5 ml Q6H PRN ORAL For Cough 02/14/19 11:00 03/13/19 10:59 Sarah Kilpatrick M.D. Feb 14, 2019 10:25
--- NOTE | 2019-02-14 10:39 | GI Progress Note ---
Assessment/Plan Problems: (1) Gastroenteritis ICD Codes: K52.9 - Noninfective gastroenteritis and colitis, unspecified SNOMED: 90105529 (2) Elevated troponin ICD Codes: R74.8 - Abnormal levels of other serum enzymes SNOMED: 637553116, 213227874, 523677990 (3) Abdominal pain ICD Codes: R10.9 - Unspecified abdominal pain SNOMED: 49484571 (4) Pneumonia ICD Codes: J18.9 - Pneumonia, unspecified organism SNOMED: 144676911 (5) SOB (shortness of breath) ICD Codes: R06.02 - Shortness of breath SNOMED: 532273915 (6) Abnormal LFTs ICD Codes: R94.5 - Abnormal results of liver function studies SNOMED: 789168284 Status: unchanged Status Narrative Discussed with Dr. Arana. Assessment/Plan Assessment - resolved abd pain - resolving N/V - resolved diarrhea - possibly viral gastroenteritis - sudden spike in LFTs, normal on admission Recommendations - advance diet - symptomatic treatment - IV and p.o. hydration plus electrolyte correction - follow up cardiology recs - avoid hepatotoxics - US ordered - trend LFTs, will need follow-up with PCP to monitor enzymes. The patient was seen and examined at bedside and all new and available data was reviewed in the patients chart. I agree with the above findings, impression and plan. (Patient seen earlier today. Signature stamp does not reflect patient encounter time.). - Adithya Arana MD Subjective Subjective No recurrent vomiting denies any pain today Objective Last 24 Hour Vital Signs Date Time Temp Pulse Resp B/P (MAP) Pulse Ox O2 Delivery O2 Flow Rate FiO2 02/14/19 09:00 Room Air 02/14/19 09:00 97.7 91 16 103/76 (85) 94 02/14/19 04:00 99.0 101 21 108/77 (87) 95 02/14/19 00:00 98.7 93 17 106/69 (81) 95 02/13/19 21:00 Room Air 02/13/19 20:00 97.7 94 16 117/70 (86) 96 02/13/19 16:00 98.3 97 20 110/70 (83) 98 02/13/19 12:00 98.3 87 20 111/74 (86) 96 02/13/19 12:00 81 Intake and Output 02/13/19 02/14/19 19:00 07:00 Intake Total 300 ml 240 ml Balance 300 ml 240 ml Intake Oral 300 ml 240 ml # Voids 4 3 Laboratory Tests Test 02/14/19 06:15 White Blood Count 4.0 K/UL (4.8-10.8) L Red Blood Count 4.76 M/UL (4.20-5.40) Hemoglobin 14.4 G/DL (12.0-16.0) Hematocrit 42.3 % (37.0-47.0) Mean Corpuscular Volume 89 FL (80-99) Mean Corpuscular Hemoglobin 30.3 PG (27.0-31.0) Mean Corpuscular Hemoglobin Concent 34.1 G/DL (32.0-36.0) Red Cell Distribution Width 10.5 % (11.6-14.8) L Platelet Count 227 K/UL (150-450) Mean Platelet Volume 7.8 FL (6.5-10.1) Neutrophils (%) (Auto) 66.0 % (45.0-75.0) Lymphocytes (%) (Auto) 15.5 % (20.0-45.0) L Monocytes (%) (Auto) 16.1 % (1.0-10.0) H Eosinophils (%) (Auto) 1.9 % (0.0-3.0) Basophils (%) (Auto) 0.6 % (0.0-2.0) Sodium Level 136 MMOL/L (136-145) Potassium Level 3.7 MMOL/L (3.5-5.1) Chloride Level 102 MMOL/L (98-107) Carbon Dioxide Level 24 MMOL/L (21-32) Anion Gap 10 mmol/L (5-15) Blood Urea Nitrogen 16 mg/dL (7-18) Creatinine 0.5 MG/DL (0.55-1.30) L Estimat Glomerular Filtration Rate > 60 mL/min (>60) Glucose Level 109 MG/DL (74-106) H Calcium Level 8.4 MG/DL (8.5-10.1) L Total Bilirubin 0.6 MG/DL (0.2-1.0) Direct Bilirubin 0.2 MG/DL (0.0-0.3) Aspartate Amino Transf (AST/SGOT) 560 U/L (15-37) H Alanine Aminotransferase (ALT/SGPT) 571 U/L (12-78) H Alkaline Phosphatase 334 U/L (46-116) H Total Protein 6.9 G/DL (6.4-8.2) Albumin 3.0 G/DL (3.4-5.0) L Height (Feet): 5 Height (Inches): 0.00 Weight (Pounds): 141 General Appearance: WD/WN, no apparent distress, alert Cardiovascular: normal rate Respiratory/Chest: normal breath sounds, no respiratory distress Abdominal Exam: normal bowel sounds, non tender, soft Extremities: non-tender Objective legally blind Ovidio Berumen NP Feb 14, 2019 10:39
[2019-02-14] MEDS ORDERED: Morphine Sulfate 2mg/ml Inj(IV/IM USE ONLY) IVP PRN (11:00)
[2019-02-14] MEDS ORDERED: Promethazine/Codeine 5ml UD ORAL PRN (11:00)
[2019-02-14] MEDS ORDERED: Miralax 17gm pkt ORAL PRN (11:00)
--- NOTE | 2019-02-14 11:10 | NUR ---
NURSE NOTES: Dr. Martinez came and saw the patient. Per Dr. Martinez, the patient will be discharged home today and she can follow up the outpatient clinic for elevated liver enzymes. Informed the case management assistant to update the discharge placement.
--- NOTE | 2019-02-14 11:24 | Pulmonology Progress Note ---
Assessment/Plan Problems: (1) Non-ST elevation (NSTEMI) myocardial infarction (2) Blindness of both eyes (3) Gastroenteritis (4) Elevated troponin Assessment/Plan stress study was negative symptomatic treatment dc home if ok with cardiology Subjective ROS Limited/Unobtainable: No Constitutional: Reports: no symptoms HEENT: Repors: no symptoms Respiratory: Reports: no symptoms Allergies: Coded Allergies: No Known Allergies (Unverified , 02/08/19) Objective Last 24 Hour Vital Signs Date Time Temp Pulse Resp B/P (MAP) Pulse Ox O2 Delivery O2 Flow Rate FiO2 02/14/19 09:00 Room Air 02/14/19 09:00 97.7 91 16 103/76 (85) 94 02/14/19 04:00 99.0 101 21 108/77 (87) 95 02/14/19 00:00 98.7 93 17 106/69 (81) 95 02/13/19 21:00 Room Air 02/13/19 20:00 97.7 94 16 117/70 (86) 96 02/13/19 16:00 98.3 97 20 110/70 (83) 98 02/13/19 12:00 98.3 87 20 111/74 (86) 96 02/13/19 12:00 81 Intake and Output 02/13/19 02/14/19 19:00 07:00 Intake Total 300 ml 240 ml Balance 300 ml 240 ml Intake Oral 300 ml 240 ml # Voids 4 3 General Appearance: WD/WN HEENT: normocephalic, atraumatic Respiratory/Chest: chest wall non-tender, lungs clear Cardiovascular: normal peripheral pulses, normal rate Abdomen: soft, non tender, no organomegaly Genitourinary: normal external genitalia Skin: no rash Laboratory Tests 02/14/19 06:15: White Blood Count 4.0L, Red Blood Count 4.76, Hemoglobin 14.4, Hematocrit 42.3, Mean Corpuscular Volume 89, Mean Corpuscular Hemoglobin 30.3, Mean Corpuscular Hemoglobin Concent 34.1, Red Cell Distribution Width 10.5L, Platelet Count 227, Mean Platelet Volume 7.8, Neutrophils (%) (Auto) 66.0, Lymphocytes (%) (Auto) 15.5L, Monocytes (%) (Auto) 16.1H, Eosinophils (%) (Auto) 1.9, Basophils (%) ( Auto) 0.6, Sodium Level 136, Potassium Level 3.7, Chloride Level 102, Carbon Dioxide Level 24, Anion Gap 10, Blood Urea Nitrogen 16, Creatinine 0.5L, Estimat Glomerular Filtration Rate > 60, Glucose Level 109H, Calcium Level 8.4L , Total Bilirubin 0.6, Direct Bilirubin 0.2, Aspartate Amino Transf (AST/SGOT) 560H, Alanine Aminotransferase (ALT/SGPT) 571H, Alkaline Phosphatase 334H, Total Protein 6.9, Albumin 3.0L Current Medications Medications (Trade) Dose Ordered Sig/Keron Route PRN Reason Start Time Stop Time Status Last Admin Dose Admin Acetaminophen (Tylenol) 650 mg Q4H PRN ORAL Mild Pain/Temp > 100.5 02/14/19 11:00 03/10/19 10:59 Aspirin (ASA) 81 mg DAILY ORAL 02/15/19 09:00 03/13/19 12:29 Dextrose (Dextrose 50%) 25 ml Q30M PRN IV Hypoglycemia 02/14/19 10:15 03/10/19 17:44 Dextrose (Dextrose 50%) 50 ml Q30M PRN IV Hypoglycemia 02/14/19 10:15 03/10/19 17:44 Docusate Sodium (Colace) 100 mg TWICE A DAY ORAL 02/14/19 18:00 03/13/19 17:59 Heparin Sodium (Porcine) (Heparin 5000 units/ml) 5,000 units EVERY 12 HOURS SUBQ 02/14/19 21:00 03/10/19 20:59 Ketotifen Fumarate (Zatidor) 1 drop Q12HR BOTH EYES 02/14/19 21:00 03/15/19 20:59 Morphine Sulfate (Morphine Sulfate) 2 mg Q4H PRN IVP Severe Pain (Pain Scale 7-10) 02/14/19 11:00 02/15/19 10:59 Ondansetron HCl (Zofran) 4 mg Q6H PRN IVP Nausea & Vomiting 02/14/19 11:45 03/10/19 17:44 Patient Own Medication (Patient's Own Med) 2 ea Q4HR BOTH EYES 02/14/19 13:00 03/16/19 12:59 Polyethylene Glycol (Miralax) 17 gm DAILYPRN PRN ORAL Constipation 02/14/19 11:00 03/10/19 10:59 Promethazine HCl/ Codeine (Phenergan with Codeine) 5 ml Q6H PRN ORAL For Cough 02/14/19 11:00 03/13/19 10:59 Mary Martinez MD Feb 14, 2019 11:24
[2019-02-14 11:40] VITALS: BP 103/71
--- NOTE | 2019-02-14 11:54 | NUR ---
RD ASSESSMENT & RECOMMENDATIONS SEE CARE ACTIVITY FOR COMPLETE ASSESSMENT DAILY ESTIMATED NEEDS: Needs based on Cardiac 50kg adj 25-30 kcals/kg 4611-9412 total kcals 1-1.2 g protein/kg 50-60 g total protein 25-30 mL/kg 3927-7603 total fluid mLs NUTRITION DIAGNOSIS: Self feeding difficulty r/t paralysis and blindness as evidenced by L side paralysis, BL blindness, pt requires assistance at all meals. CURRENT DIET: Regular-> NPO for abd US PO DIET RECOMMENDATIONS: LOW NA DIET ADDITIONAL RECOMMENDATIONS: 1) Weekly weights on calibrated bed scale 2) Change diet to LOW NA w/ current elev LFT's 3) 1:1 w/ all meals + snacks
--- NOTE | 2019-02-14 13:23 | NUR ---
*-* INSURANCE *-* ALL CLINICALS HAVE BEEN FAXED TO: [facility] WILL TRACK THIS ADMIT PLEASE FAX THE REVIEW/CLINICAL P- [phone] F- [phone]...REVIEW/CLINICAL [facility]: JEANNINE T: [phone] REF# [id number]
--- NOTE | 2019-02-14 14:23 | General Progress Note ---
Assessment/Plan Status: unchanged Assessment/Plan: Problem List: (1) Elevated troponin ICD Codes: R74.8 - Abnormal levels of other serum enzymes SNOMED: 567837623, 228577017, 844064576 (2) SOB (shortness of breath) ICD Codes: R06.02 - Shortness of breath SNOMED: 554844847 (3) Pneumonia ICD Codes: J18.9 - Pneumonia, unspecified organism SNOMED: 266015542 (4) Abdominal pain ICD Codes: R10.9 - Unspecified abdominal pain SNOMED: 80285581 --> Improved abdominal pain --> stable for dc today Subjective Constitutional: Denies: no symptoms, chills, diaphoresis, fever, malaise, weakness, other HEENT: Denies: no symptoms, eye pain, blurred vision, tearing, double vision, ear pain, ear discharge, nose pain, nose congestion, throat pain, throat swelling, mouth pain, mouth swelling, other Cardiovascular: Denies: no symptoms, chest pain, edema, irregular heart rate, lightheadedness, palpitations, syncope, other Respiratory: Denies: no symptoms, cough, orthopnea, shortness of breath, SOB with excertion, SOB at rest, sputum, stridor, wheezing, other Gastrointestinal/Abdominal: Denies: no symptoms, abdomen distended, abdominal pain, black stools, tarry stools, blood in stool, constipated, diarrhea, difficulty swallowing, nausea, poor appetite, poor fluid intake, rectal bleeding , vomiting, other Neurologic/Psychiatric: Denies: no symptoms, anxiety, depressed, emotional problems, headache, numbness, paresthesia, pre-existing deficit, seizure, tingling, tremors, weakness, other Endocrine: Denies: no symptoms, excessive sweating, flushing, intolerance to cold, intolerance to heat, increased hunger, increased thirst, increased urine, unexplained weight gain, unexplained weight loss, other Allergies: Coded Allergies: No Known Allergies (Unverified , 02/08/19) Subjective 02/14: no events, no f/c, potential dc today Objective Last 24 Hour Vital Signs Date Time Temp Pulse Resp B/P (MAP) Pulse Ox O2 Delivery O2 Flow Rate FiO2 02/14/19 11:40 97.1 94 19 103/71 (82) 94 02/14/19 09:00 Room Air 02/14/19 09:00 97.7 91 16 103/76 (85) 94 02/14/19 04:00 99.0 101 21 108/77 (87) 95 02/14/19 00:00 98.7 93 17 106/69 (81) 95 02/13/19 21:00 Room Air 02/13/19 20:00 97.7 94 16 117/70 (86) 96 02/13/19 16:00 98.3 97 20 110/70 (83) 98 Intake and Output 02/13/19 02/14/19 19:00 07:00 Intake Total 300 ml 240 ml Balance 300 ml 240 ml Intake Oral 300 ml 240 ml # Voids 4 3 Laboratory Tests 02/14/19 06:15: White Blood Count 4.0L, Red Blood Count 4.76, Hemoglobin 14.4, Hematocrit 42.3, Mean Corpuscular Volume 89, Mean Corpuscular Hemoglobin 30.3, Mean Corpuscular Hemoglobin Concent 34.1, Red Cell Distribution Width 10.5L, Platelet Count 227, Mean Platelet Volume 7.8, Neutrophils (%) (Auto) 66.0, Lymphocytes (%) (Auto) 15.5L, Monocytes (%) (Auto) 16.1H, Eosinophils (%) (Auto) 1.9, Basophils (%) ( Auto) 0.6, Sodium Level 136, Potassium Level 3.7, Chloride Level 102, Carbon Dioxide Level 24, Anion Gap 10, Blood Urea Nitrogen 16, Creatinine 0.5L, Estimat Glomerular Filtration Rate > 60, Glucose Level 109H, Calcium Level 8.4L , Total Bilirubin 0.6, Direct Bilirubin 0.2, Aspartate Amino Transf (AST/SGOT) 560H, Alanine Aminotransferase (ALT/SGPT) 571H, Alkaline Phosphatase 334H, Total Protein 6.9, Albumin 3.0L Height (Feet): 5 Height (Inches): 0.00 Weight (Pounds): 141 Objective General Appearance: WD/WN, no apparent distress, alert Cardiovascular: normal rate Respiratory/Chest: normal breath sounds, no respiratory distress Abdominal Exam: normal bowel sounds, non tender, soft Extremities: non-tender Objective legally blind Marino Wilson MD Feb 14, 2019 14:23
[2019-02-14 15:36] VITALS: BP 109/69
--- NOTE | 2019-02-14 16:54 | NUR ---
HAND-OFF: Report given to Estefania gomez. Pt remians stable..
[2019-02-14] MEDS ORDERED: Docusate 100mg cap ORAL SCH (18:00)
--- NOTE | 2019-02-14 18:37 | NUR ---
NURSE NOTES: patient discharged as ordered. patient accommodated with her boyfriend and her boyfriend's sister.no belonging. vital signs stable. no c/o pain and SOB.
[2019-02-14] MEDS ORDERED: Heparin 5000 units/ml inj SUBQ SCH (21:00)
[2019-02-14] MEDS ORDERED: Ketotifen Fumarate 0.035% 5ml BOTH EYES SCH (21:00)
[2019-02-15] MEDS ORDERED: Aspirin Baby 81mg ORAL SCH (09:00)
--- NOTE | 2019-02-18 07:57 | Discharge Summary ---
Discharge Summary Discharge Summary _ DATE OF ADMISSION: 02/08/2019 DATE OF DISCHARGE: 02/14/2019 DISCHARGED BY: Dr. Solorzano REASON FOR ADMISSION: 48 years old female with past medical history of bilateral blindness, left upper extremity paralysis, presented with diffuse abdominal pain with associated diarrhea , severe nausea and inability to tolerate oral diet. During evaluation patient was noted to have elevated troponin -0.338. ProBNP 122. Chest x-ray revealed no acute cardiopulmonary pathology. Patient admitted for abdominal pain and elevated troponin CONSULTANTS: tobacco stripper Dr. Menezes pulmonary/critical care Dr. Martinez ID specialist Dr. Kilpatrick GI specialist [facility] COURSE: Patient initially admitted to telemetry floor. Serial troponin revealed pattern of mild elevation 0.52 and 0.73. Patient was on antiplatelet therapy with aspirin. EKG revealed normal sinus rhythm with nonspecific T wave abnormality. Echocardiogram demonstrated normal left ventricular chamber size, systolic function and wall motion. Ejection fraction estimated to be 50 to 55% with mild left ventricular hypertrophy. Right ventricular systolic pressure of 7. Patient subsequently undergone myocardial perfusion scan test, which was nonischemic. Per tobacco stripper, elevated troponin was likely due to infectious process. Patient remained in sinus rhythm. GI specialist followed. CT of the abdomen and pelvis demonstrated no definite acute abdominal or pelvic process. The visualized lung bases revealed scattered patchy pulmonary parenchymal infiltrates, most likely pneumonia. Patient initially was on the IV fluids and kept n.p.o. Pain management was addressed as needed. Antiemetic provided as needed. Symptomatic treatment provided. Diarrhea, nausea, vomiting were slowly resolving. Patient started on liquid diet, which was gradually advanced. Patient was able to tolerate diet. Patient noted sudden sudden spike in LFTs , which were normal on admission. LFT trending down. HIV test was nonreactive. Patient to follow-up with her primary care provider to monitor LFT. Recommended to avoid hepatotoxic . ID specialist followed. Patient had recent food poisoning , probable viral gastroenteritis. Symptoms resolved prior to discharge. Patient complained of cough. CT of the abdomen and pelvis revealed evidence of scattered infiltrates, likely pneumonia. Patient completed antibiotic treatment for pneumonia as per ID specialist recommendation. Antitussive provided as needed. Supplemental oxygen provided as needed to keep pulse oximetry above 92%. Pulse oximetry was stable on room air. Pulmonary toilet was on standby as needed. DVT prophylaxis provided. Home eyedrops continued. Patient remained afebrile, no leukocytosis. Patient clinically stabilized and was ready for discharge . FINAL DIAGNOSES: Abdominal pain with nausea and diarrhea, likely viral gastroenteritis Recent food poisoning Pneumonia, status post treatment Elevated troponin Abnormal LFT Bilateral blindness DISCHARGE MEDICATIONS: See Medication Reconciliation list. DISCHARGE INSTRUCTIONS: Patient was discharged home . Follow up with primary care provider in one week for LFT check. I have been assigned to dictate discharge summary for this account. I was not involved in the patient's management. Macie Molina NP Feb 18, 2019 07:57
--- NOTE | 2019-02-18 16:12 | NUR ---
*-* INSURANCE *-* DISCHARGE SUMMARY HAS BEEN FAXED TO: [facility]: JEANNINE T: [phone] REF# [id number]
== END 2019-02-14 18:20 | disposition home or self-care (01) | DRG 139 ==
LOC: EDBD 14:09 → EMR 14:50 → 2E 16:05 → EDBEDREQ 18:20 → 3E 02-14 09:10
DX: J18.9 Pneumonia, unspecified organism (principal); I21.4 Non-ST elevation (NSTEMI) myocardial infarction; G81.94 Hemiplegia, unspecified affecting left nondominant side; H54.8 Legal blindness, as defined in USA; A08.4 Viral intestinal infection, unspecified; R94.5 Abnormal results of liver function studies; R74.8 Abnormal levels of other serum enzymes
CPT/HCPCS: 36415; 71045; 74177; 78452; 80048; 80053; 80069; 80076; 80202; 81003; 81025; 82550; 82553; 83690; 83880; 84484; 85007; 85025; 86703; 93005; 93017; 93306; 94640; 94664; 96365; 96375; 99285; J2405; J2785; J7620